=== PATIENT | female | born 1995 | race Caucasian/White ===

== ENCOUNTER 2018-03-01 09:05 | Outpatient (CLI) | payer OTHER | END 2018-03-01 12:47 | disposition home or self-care (01) | LOC: M LDO 09:05 | DX: O36.8130 Decreased fetal movements, third trimester, not applicable or unspecified (principal); Z3A.28 28 weeks gestation of pregnancy | CPT/HCPCS: 59025 ==

== ENCOUNTER → 2018-03-02 | Outpatient (REF) | payer OTHER ==
[2018-03-02 13:29] LABS: BASO % 0.3 % (0.0-1.0); EOS % 0.2 % (0.0-3.0); HEMATOCRIT 34.8 % (36.0-47.0); HEMOGLOBIN 11.2 g/dl (12.0-15.5); IMMATURE GRANULOCYTE % 0.7 % (0-3.0); LYMPH # 1.8 10^3/uL (1.5-6.5); LYMPH % 14.7 % (24.0-44.0); MEAN CORPUSCULAR HEMOGLOBIN 27.1 pg (27.0-33.0); MEAN CORPUSCULAR HGB CONC 32.2 g/dl (32.0-36.5); MEAN CORPUSCULAR VOLUME 84.3 fl (80.0-96.0); MONO % 7.9 % (0.0-5.0); NEUTROPHILS # 9.3 10^3/uL (1.8-7.7); NEUTROPHILS % 76.2 % (36.0-66.0); PLATELET COUNT, AUTOMATED 376 10^3/uL (150-450); RED BLOOD COUNT 4.13 10^6/uL (4.00-5.40); RED CELL DISTRIBUTION WIDTH 12.5 % (11.5-14.5); WHITE BLOOD COUNT 12.2 10^3/uL (4.0-10.0)
[2018-03-02 13:41] LABS: ALBUMIN 2.7 GM/DL (3.2-5.2); ALBUMIN/GLOBULIN RATIO 0.63 (1.00-1.93); ALKALINE PHOSPHATASE 245 U/L (45-117); ALT/SGPT 266 U/L (12-78); ANION GAP 7 MEQ/L (8-16); AST/SGOT 163 U/L (7-37); BILIRUBIN,TOTAL 0.3 MG/DL (0.2-1.0); BLOOD UREA NITROGEN 7 MG/DL (7-18); CALCIUM LEVEL 9.1 MG/DL (8.5-10.1); CARBON DIOXIDE LEVEL 27 MEQ/L (21-32); CHLORIDE LEVEL 106 MEQ/L (98-107); CREATININE FOR GFR 0.59 MG/DL (0.55-1.30); GLOMERULAR FILTRATION RATE > 60.0 (>60); GLUCOSE, FASTING 87 MG/DL (70-100); POTASSIUM SERUM 4.4 MEQ/L (3.5-5.1); SODIUM LEVEL 140 MEQ/L (136-145)
[2018-03-05 08:11] LABS: BILE ACIDS FRACTIONATED 7.1 umol/L (4.7-24.5)
== END ==
LOC: M LAB REF 12:56
DX: Z34.82 Encounter for supervision of other normal pregnancy, second trimester (principal)

== ENCOUNTER → 2018-03-18 | Outpatient (CLI) | payer OTHER | LOC: M RAD 06:56 | DX: O26.613 Liver and biliary tract disorders in pregnancy, third trimester (principal) | CPT/HCPCS: 76705 ==

== ENCOUNTER → 2018-03-31 | Outpatient (CLI) | payer OTHER ==
[2018-03-31 18:52] LABS: HEMATOCRIT 33.7 % (36.0-47.0); HEMOGLOBIN 10.3 g/dl (12.0-15.5); MEAN CORPUSCULAR HEMOGLOBIN 26.1 pg (27.0-33.0); MEAN CORPUSCULAR HGB CONC 30.6 g/dl (32.0-36.5); MEAN CORPUSCULAR VOLUME 85.3 fl (80.0-96.0); PLATELET COUNT, AUTOMATED 324 10^3/uL (150-450); RED BLOOD COUNT 3.95 10^6/uL (4.00-5.40); RED CELL DISTRIBUTION WIDTH 12.9 % (11.5-14.5); WHITE BLOOD COUNT 10.3 10^3/uL (4.0-10.0)
[2018-03-31 19:36] LABS: ALBUMIN 2.6 GM/DL (3.2-5.2); ALBUMIN/GLOBULIN RATIO 0.65 (1.00-1.93); ALKALINE PHOSPHATASE 301 U/L (45-117); ALT/SGPT 226 U/L (12-78); AST/SGOT 123 U/L (7-37); BILIRUBIN,DIRECT < 0.1 MG/DL (0.0-0.2); BILIRUBIN,TOTAL 0.2 MG/DL (0.2-1.0); TOTAL PROTEIN 6.6 GM/DL (6.4-8.2)
== END ==
LOC: M SMT 10:44
DX: O26.613 Liver and biliary tract disorders in pregnancy, third trimester (principal); Z3A.32 32 weeks gestation of pregnancy
CPT/HCPCS: 80076

== ENCOUNTER 2018-04-05 18:27 | Outpatient (CLI) | payer OTHER | END 2018-04-05 20:38 | disposition home or self-care (01) | LOC: M LDO 18:27 | DX: O26.853 Spotting complicating pregnancy, third trimester (principal); O47.03 False labor before 37 completed weeks of gestation, third trimester; Z3A.33 33 weeks gestation of pregnancy | CPT/HCPCS: 76815 ==

== ENCOUNTER → 2018-04-17 | Outpatient (REF) | payer OTHER | LOC: M LAB REF 17:19 | DX: Z34.83 Encounter for supervision of other normal pregnancy, third trimester (principal) ==

== ENCOUNTER 2018-05-01 11:33 | Inpatient (IN) | payer OTHER ==
[2018-05-01 12:17] LABS: HEMATOCRIT 35.1 % (36.0-47.0); HEMOGLOBIN 10.9 g/dl (12.0-15.5); MEAN CORPUSCULAR HEMOGLOBIN 24.8 pg (27.0-33.0); MEAN CORPUSCULAR HGB CONC 31.1 g/dl (32.0-36.5); PLATELET COUNT, AUTOMATED 374 10^3/uL (150-450); RED BLOOD COUNT 4.39 10^6/uL (4.00-5.40); RED CELL DISTRIBUTION WIDTH 13.2 % (11.5-14.5); WHITE BLOOD COUNT 11.1 10^3/uL (4.0-10.0)
[2018-05-01] MEDS: LACTATED RINGER'S 1000 ML IV (12:40)
[2018-05-01 13:02] LABS: ALBUMIN 2.6 GM/DL (3.2-5.2); ALBUMIN/GLOBULIN RATIO 0.59 (1.00-1.93); ALKALINE PHOSPHATASE 370 U/L (45-117); ALT/SGPT 327 U/L (12-78); AST/SGOT 219 U/L (7-37); BILIRUBIN,DIRECT 0.1 MG/DL (0.0-0.2); BILIRUBIN,TOTAL 0.3 MG/DL (0.2-1.0)
[2018-05-01] MEDS ORDERED: OXYTOCIN 30 UNITS IN 0.9% NaCl 500ML IV BAG (J2590) As Ordered (13:43)
[2018-05-01] MEDS: OXYTOCIN DRIP 30 UNITS in APPROPRIATE DILUENT 1 EA IV (14:08)
[2018-05-01] MEDS: PROMETHAZINE INJ 25 MG/ML VIAL (J2550) IV (14:15)
[2018-05-01] MEDS: BUTORPHANOL 2 MG/ML INJ (J0595) IV (14:15)
[2018-05-01] MEDS: LR 1,000 ML IV (17:58)
[2018-05-01] MEDS: URSODIOL 500 MG PO (19:10)
[2018-05-01] MEDS ORDERED: FENTANYL 2MCG/ML ROPIVACAINE 0.2% IN 0.9% NACL 200ML IVBAG As Ordered (19:29)
[2018-05-01] MEDS ORDERED: ONDANSETRON 4MG/2ML VIAL (J2405) IV (19:30)
[2018-05-01] MEDS ORDERED: ePHEDrine SULFATE 25 MG/5 ML(5MG/ML) SYRINGE IV (19:30)
[2018-05-01] MEDS ORDERED: EPIDURAL/PCA KEYS XX (19:30)
[2018-05-01] MEDS ORDERED: REFRIGERATOR IV KEYS XX (19:30)
[2018-05-01] MEDS ORDERED: LACTATED RINGER'S 1000 ML IV (19:30)
[2018-05-01] MEDS ORDERED: diphenhydrAMINE INJ 50MG/ML VIAL (J1200) IV (19:30)
[2018-05-01] MEDS: FENTANYL/ROPIVACAINE/NACL BAG 200 ML EPIDURAL (19:30)
[2018-05-01] MEDS ORDERED: EPIDURAL COMMENT XX (19:30)
[2018-05-01] MEDS ORDERED: NALOXONE INJ 0.4 MG/1 ML VIAL (J2310) IV (19:30)
[2018-05-01 21:43] LABS: CORD GAS HCO3 V 23.4 MEQ/L; CORD GAS O2 SAT V 71.2 %; CORD GAS PCO2 V 38.3 mmHg; CORD GAS PH V 7.404 UNITS; CORD GAS PO2 V 27.7 mmHg; CORD GAS TCO2 V 24.6 MEQ/L
[2018-05-01 21:45] LABS: CORD GAS ABE A -2.3; CORD GAS O2 SAT A 71.8 %; CORD GAS PCO2 A 46.2 mmHg; CORD GAS PH A 7.333 UNITS; CORD GAS PO2 A 27.6 mmHg; CORD GAS SBC A 21.9 MEQ/L; CORD GAS TCO2 A 25.4 MEQ/L
[2018-05-01] MEDS ORDERED: MOM 30ML SUSPENSION UDC PO (21:45)
[2018-05-01] MEDS ORDERED: METHYLERGONOVINE MALEATE 0.2 MG TAB PO (21:45)
[2018-05-01] MEDS ORDERED: DIBUCAINE 1% OINTMENT 30GM TOP (21:45)
[2018-05-01] MEDS ORDERED: RHOGAM 300 MCG (1500 IU) INJ (J2790) IM (21:45)
[2018-05-01] MEDS ORDERED: MEASLES,MUMPS,RUBELLA VACCINE INJ (MMR-II) (90707) SC (21:45)
[2018-05-01] MEDS ORDERED: ANUSOL HC CREAM 30GM TOP (21:45)
[2018-05-02] MEDS: ACETAMINOPHEN 500 MG TAB PO (05:53)
[2018-05-02] MEDS: PRENATAL VITAMINS CHEWABLE TABLET PO (07:46)
[2018-05-02] MEDS: IBUPROFEN 800 MG TAB PO ×2 (10:44→20:09)
[2018-05-02] MEDS: DOCUSATE SODIUM 100 MG CAP PO (20:08)
[2018-05-03] MEDS: PRENATAL VITAMINS CHEWABLE TABLET PO (07:51)
[2018-05-03] MEDS: IBUPROFEN 800 MG TAB PO (12:02)
[2018-05-04 14:55] LABS: BILE ACIDS FRACTIONATED 17.7 umol/L (4.7-24.5)
== END 2018-05-03 13:15 | disposition home or self-care (01) | DRG 775 ==
LOC: M LDI 11:33 → M OBS 23:34
PROC: 10E0XZZ Delivery of Products of Conception, External Approach (ICD-10-PCS; principal; 2018-05-01)
PROC: 3E033VJ Introduction of Other Hormone into Peripheral Vein, Percutaneous Approach (ICD-10-PCS; 2018-05-01)
PROC: 10907ZC Drainage of Amniotic Fluid, Therapeutic from Products of Conception, Via Natural or Artificial Opening (ICD-10-PCS; 2018-05-01)
DX: O26.62 Liver and biliary tract disorders in childbirth (principal); K83.1 Obstruction of bile duct; Z91.048 Other nonmedicinal substance allergy status; Z79.899 Other long term (current) drug therapy; Z37.0 Single live birth; Z3A.37 37 weeks gestation of pregnancy; O69.1XX0 Labor and delivery complicated by cord around neck, with compression, not applicable or unspecified

== ENCOUNTER 2018-11-01 00:32 | Emergency (ER) | payer OTHER ==
[~2018-11-01] VITALS: Ht 170.2 cm; Wt 108.6 kg
[~2018-11-01 00:32] MED LIST: ACET-683 PO; IBUP-1114 PO; PRENTAB7 PO; PRENTAB9 PO; TUMS500C PO; URSO300C3 PO
[2018-11-01] MEDS ORDERED: MULTCAP PO (00:38)
[2018-11-01] MEDS ORDERED: NS 1,000 ML IV ONE (01:00)
[2018-11-01] MEDS ORDERED: ONDANSETRON 4MG/2ML VIAL (J2405) IV ONE (01:00)
[2018-11-01] MEDS ORDERED: MORPHINE 4 MG/ML 1ML VIAL/SYRINGE (J2270) IV PRN (01:00)
[2018-11-01 01:18] LABS: BASO % 0.3 % (0.0-1.0); EOS % 0.4 % (0.0-3.0); HEMATOCRIT 43.3 % (36.0-47.0); HEMOGLOBIN 13.2 g/dl (12.0-15.5); LYMPH # 1.6 10^3/uL (1.5-6.5); LYMPH % 20.6 % (24.0-44.0); MEAN CORPUSCULAR HEMOGLOBIN 25.5 pg (27.0-33.0); MEAN CORPUSCULAR HGB CONC 30.5 g/dl (32.0-36.5); MEAN CORPUSCULAR VOLUME 83.8 fl (80.0-96.0); MONO # 0.8 10^3/uL (0.0-0.8); MONO % 9.8 % (0.0-5.0); NEUTROPHILS # 5.2 10^3/uL (1.8-7.7); NEUTROPHILS % 68.6 % (36.0-66.0); PLATELET COUNT, AUTOMATED 339 10^3/uL (150-450); RED BLOOD COUNT 5.17 10^6/uL (4.00-5.40); WHITE BLOOD COUNT 7.6 10^3/uL (4.0-10.0)
[2018-11-01 01:45] LABS: ALBUMIN 3.7 GM/DL (3.2-5.2); ALT/SGPT 28 U/L (12-78); BILIRUBIN,DIRECT < 0.1 MG/DL (0.0-0.2); BILIRUBIN,TOTAL 0.2 MG/DL (0.2-1.0); BLOOD UREA NITROGEN 17 MG/DL (7-18); CALCIUM LEVEL 9.4 MG/DL (8.5-10.1); CARBON DIOXIDE LEVEL 25 MEQ/L (21-32); CHLORIDE LEVEL 106 MEQ/L (98-107); CREATININE FOR GFR 0.72 MG/DL (0.55-1.30); GLOMERULAR FILTRATION RATE > 60.0 (>60); GLUCOSE, FASTING 85 MG/DL (70-100); LIPASE 97 U/L (73-393); POTASSIUM SERUM 4.1 MEQ/L (3.5-5.1); SODIUM LEVEL 138 MEQ/L (136-145); TOTAL PROTEIN 7.5 GM/DL (6.4-8.2)
--- NOTE | 2018-11-01 02:07 | REPVR ---
EXAM: US Abdomen Limited, Right Upper Quadrant EXAM DATE/TIME: 11/01/2018 1:39 AM CLINICAL HISTORY: 22 years old, female; Pain; Abdominal pain; Epigastric; Additional info: Epigastric abdominal TECHNIQUE: Real-time ultrasound of the abdomen with image documentation. Examination was focused on the right upper quadrant. COMPARISON: Abdomen, limited US 03/18/2018 7:14 AM FINDINGS: Liver: The liver is mildly echogenic and demonstrates no focal defects. Gallbladder: Shadowing gallstones are noted in the gallbladder. There is no wall thickening measuring 2-3 mm. There is a negative sono Da Silva's sign. Common bile duct: The CBD measures 3 mm. Pancreas: Limited visualization of the pancreas demonstrates no gross abnormality. Right kidney: The right kidney is normal measuring 11.2 cm. IMPRESSION: 1. Cholelithiasis with no gallbladder wall thickening. There is a negative sono Da Silva's sign. 2. Fatty infiltration of the liver. 3. Otherwise negative right upper quadrant sonogram. Electronically signed by: Delano David On 11/01/2018 02:07:12 AM
[2018-11-01 02:30] LABS: HCG, SERUM QUALITATIVE NEGATIVE (NEGATIVE)
[2018-11-01] MEDS ORDERED: ISOVUE-370 76% 100ML VIAL (Q9967) As Ordered ONE (02:46)
--- NOTE | 2018-11-01 03:15 | REPVR ---
EXAM: CT Abdomen and Pelvis With Contrast EXAM DATE/TIME: 11/01/2018 2:51 AM CLINICAL HISTORY: 22 years old, female; Pain; Abdominal pain; Epigastric; Additional info: Epigastric pain TECHNIQUE: Axial computed tomography images of the abdomen and pelvis with intravenous contrast. All CT scans at this facility use at least one of these dose optimization techniques: automated exposure control; mA and/or kV adjustment per patient size (includes targeted exams where dose is matched to clinical indication); or iterative reconstruction. Coronal and sagittal reformatted images were created and reviewed. CONTRAST: 100 ml of ISOVUE 370 administered intravenously. COMPARISON: CT ABD PELVIS W/O CONTRAST 06/30/2012 9:39 AM FINDINGS: Lower thorax: No acute findings. ABDOMEN: Liver: Normal. No mass. Gallbladder and bile ducts: Probable sludge in the gallbladder. Pancreas: Normal. No ductal dilation. Spleen: Normal. No splenomegaly. Adrenals: Normal. No mass. Kidneys and ureters: Normal. No hydronephrosis. Stomach and bowel: Normal. No obstruction. No mucosal thickening. Appendix: A normal appendix is seen. PELVIS: Bladder: Unremarkable as visualized. Reproductive: Unremarkable as visualized. ABDOMEN and PELVIS: Intraperitoneal space: Normal. No free air. No significant fluid collection. Bones/joints: No acute fracture. No dislocation. Soft tissues: Unremarkable. Vasculature: Normal. No abdominal aortic aneurysm. Lymph nodes: Normal. No enlarged lymph nodes. IMPRESSION: 1. There has been little change from 06/30/2012. No acute interval process is identified. 2. Probable sludge in the gallbladder. Electronically signed by: Delano David On 11/01/2018 03:14:47 AM
[2018-11-01] MEDS ORDERED: HYOS1TAB PO (03:35)
[2018-11-01 03:39] VITALS: BP 118/80
== END 2018-11-01 03:40 | disposition home or self-care (01) ==
LOC: M ED 00:32
DX: K80.70 Calculus of gallbladder and bile duct without cholecystitis without obstruction (principal); R11.0 Nausea; Z91.040 Latex allergy status; J30.1 Allergic rhinitis due to pollen
CPT/HCPCS: 74177; 76705; 80048; 80076; 81001; 83690; 84703; 85025; 96374; 96375; 99284; J2270; J2405; Q9967

== ENCOUNTER → 2019-01-01 | Outpatient (CLI) | payer OTHER ==
[~2019-01-01] VITALS: Ht 170.2 cm; Wt 3.2 kg
[~2019-01-01] MED LIST changes: +BUPIVACAINE HCL 0.25% 30 ML VIAL As Ordered ONE; +HYOS1TAB PO; +LR 1,000 ML IV ONE; +MULTCAP PO
[2019-01-01 06:59] VITALS: BP 135/88
[2019-01-01 07:18] LABS: URINE PREG TEST POSITIVE (NEGATIVE)
== END ==
LOC: M SDC 06:00 → EDSTATUS 07:35
PROVIDERS: ATTEND Surgery
DX: Z01.818 Encounter for other preprocedural examination (principal)

== ENCOUNTER → 2019-01-03 | Outpatient (CLI) | payer OTHER ==
[~2019-01-03] MED LIST changes: -BUPIVACAINE HCL 0.25% 30 ML VIAL As Ordered ONE; -LR 1,000 ML IV ONE
== END ==
LOC: M LAB 11:03
PROVIDERS: ATTEND Advanced Practice Midwife
DX: N91.2 Amenorrhea, unspecified (principal)

== ENCOUNTER → 2019-02-25 | Outpatient (CLI) | payer OTHER | LOC: M SMT 13:17 | PROVIDERS: ATTEND Advanced Practice Midwife | DX: Z34.81 Encounter for supervision of other normal pregnancy, first trimester (principal); Z3A.00 Weeks of gestation of pregnancy not specified; K80.10 Calculus of gallbladder with chronic cholecystitis without obstruction ==

== ENCOUNTER → 2019-03-06 | Outpatient (REF) | payer OTHER | LOC: M SFHCADAM 11:40 | PROVIDERS: ATTEND Physician Assistant | DX: K80.20 Calculus of gallbladder without cholecystitis without obstruction (principal); K52.9 Noninfective gastroenteritis and colitis, unspecified ==

== ENCOUNTER → 2019-03-06 | Outpatient (CLI) | payer OTHER | LOC: M ADAMS 11:46 | PROVIDERS: ATTEND Physician Assistant | DX: K80.20 Calculus of gallbladder without cholecystitis without obstruction (principal); K52.9 Noninfective gastroenteritis and colitis, unspecified ==

== ENCOUNTER → 2019-03-17 | Outpatient (REF) | payer OTHER ==
[2019-03-18 10:27] LABS: ALBUMIN 3.4 GM/DL (3.2-5.2); ALT/SGPT 27 U/L (12-78); BILIRUBIN,TOTAL 0.1 MG/DL (0.2-1.0); BLOOD UREA NITROGEN 12 MG/DL (7-18); CALCIUM LEVEL 10.3 MG/DL (8.5-10.1); CARBON DIOXIDE LEVEL 25 MEQ/L (21-32); CHLORIDE LEVEL 103 MEQ/L (98-107); CREATININE FOR GFR 0.63 MG/DL (0.55-1.30); GLOMERULAR FILTRATION RATE > 60.0 (>60); GLUCOSE, FASTING 70 MG/DL (70-100); POTASSIUM SERUM 4.2 MEQ/L (3.5-5.1); SODIUM LEVEL 136 MEQ/L (136-145); TOTAL PROTEIN 7.2 GM/DL (6.4-8.2)
== END ==
LOC: M LAB REF 09:00
PROVIDERS: ATTEND Advanced Practice Midwife
DX: Z34.82 Encounter for supervision of other normal pregnancy, second trimester (principal)

== ENCOUNTER → 2019-04-03 | Outpatient (REF) | payer OTHER | LOC: M LAB REF 08:35 | PROVIDERS: ATTEND Advanced Practice Midwife | DX: O99.712 Diseases of the skin and subcutaneous tissue complicating pregnancy, second trimester (principal) ==

== ENCOUNTER → 2019-04-13 | Outpatient (CLI) | payer BC, OTHER ==
--- NOTE | 2019-04-13 10:31 | REP ---
OBSTETRIC SONOGRAPHY: HISTORY: Supervision of for anatomy. FINDINGS: Scanning through the gravid uterus demonstrates a viable single intrauterine gestation in a transverse lie, head to the maternal left. motion is observed and heart rate is recorded at 160 beats per minute. An anterior placenta is seen grade 0 without evidence of previa. Amniotic fluid is subjectively normal. Closed cervical length is measured at 6.0 cm viewed transabdominally. No extrauterine abnormality is observed. Exam quality is inhibited to some degree by maternal body habitus. No anomaly is seen. face and profile visualization is less than optimally seen due to position. The following additional anatomic structures are identified and felt to be sonographically unremarkable: cranium, choroid plexus, cavum, cerebellum and posterior fossa, lungs, four-chamber heart with left and right ventricular outflow tract views, diaphragm, left-sided stomach, abdominal wall cord insertion, three-vessel umbilical cord, kidneys and bladder, spine, upper and lower extremities. BIOMETRY CHART: BPD 4.2 cm = 18 weeks 5 days HC 15.3 cm = 18 weeks 2 days AC 13.4 cm = 18 weeks 6 days FL 2.9 cm = 18 weeks 6 days HL 2.8 cm = 19 weeks 1 day HC/AC ratio normal 1.14. Cephalic index normal 0.77. Estimated weight 259 grams, 0 pounds 9 ounces, 63rd percentile for 18 weeks 3 days. IMPRESSION: Viable single intrauterine gestation at 18 weeks 4 days by today's composite sonographic criteria. RAQUEL by today's sonography September 10, 2019. face and profile views less than optimally achieved due to position. anatomic survey is felt to be otherwise complete. Electronically Signed by Brian Kwan MD 04/13/2019 09:02 P
== END ==
LOC: M RAD 08:35
PROVIDERS: ATTEND Advanced Practice Midwife
DX: Z34.82 Encounter for supervision of other normal pregnancy, second trimester (principal)

== ENCOUNTER → 2019-04-22 | Outpatient (CLI) | payer OTHER ==
[~2019-04-22] MED LIST changes: +HYDR50CA2 OR; +LORA-674 OR
[2019-04-23 13:27] LABS: ALT/SGPT 45 U/L (12-78); BILIRUBIN,TOTAL 0.1 MG/DL (0.2-1.0); BLOOD UREA NITROGEN 7 MG/DL (7-18); CALCIUM LEVEL 9.4 MG/DL (8.5-10.1); CARBON DIOXIDE LEVEL 26 MEQ/L (21-32); CHLORIDE LEVEL 105 MEQ/L (98-107); CREATININE FOR GFR 0.57 MG/DL (0.55-1.30); GLOMERULAR FILTRATION RATE > 60.0 (>60); GLUCOSE, FASTING 84 MG/DL (70-100); POTASSIUM SERUM 4.3 MEQ/L (3.5-5.1); SODIUM LEVEL 138 MEQ/L (136-145); TOTAL PROTEIN 6.9 GM/DL (6.4-8.2)
== END ==
LOC: M LABDRWAD 17:50
PROVIDERS: ATTEND Advanced Practice Midwife
DX: O99.712 Diseases of the skin and subcutaneous tissue complicating pregnancy, second trimester (principal); Z3A.00 Weeks of gestation of pregnancy not specified

== ENCOUNTER 2019-04-24 17:39 | Emergency (ER) | payer OTHER, MEDICAID ==
[~2019-04-24] VITALS: Ht 170.2 cm; Wt 109.4 kg
[~2019-04-24 17:39] MED LIST changes: -HYDR50CA2 OR; -LORA-674 OR
[2019-04-24] MEDS ORDERED: LORA-674 OR (17:54)
[2019-04-24] MEDS ORDERED: HYDR50CA2 OR (17:54)
[2019-04-24 18:33] LABS: BASO % 0.2 % (0.0-1.0); EOS % 0.3 % (0.0-3.0); HEMATOCRIT 36.6 % (36.0-47.0); LYMPH # 1.8 10^3/uL (1.5-6.5); LYMPH % 15.7 % (24.0-44.0); MEAN CORPUSCULAR HEMOGLOBIN 28.3 pg (27.0-33.0); MEAN CORPUSCULAR HGB CONC 32.8 g/dl (32.0-36.5); MEAN CORPUSCULAR VOLUME 86.3 fl (80.0-96.0); MONO # 0.8 10^3/uL (0.0-0.8); MONO % 7.1 % (0.0-5.0); NEUTROPHILS # 8.7 10^3/uL (1.8-7.7); NEUTROPHILS % 76.3 % (36.0-66.0); PLATELET COUNT, AUTOMATED 279 10^3/uL (150-450); RED BLOOD COUNT 4.24 10^6/uL (4.00-5.40); WHITE BLOOD COUNT 11.4 10^3/uL (4.0-10.0)
[2019-04-24] MEDS ORDERED: MORPHINE 4 MG/ML 1ML VIAL/SYRINGE (J2270) IV ONE (18:45)
[2019-04-24] MEDS ORDERED: NS 1,000 ML IV ONE (18:45)
[2019-04-24] MEDS ORDERED: METOCLOPRAMIDE INJ 10MG/2ML VIAL (J2765) IV ONE (18:45)
[2019-04-24 18:53] LABS: ALT/SGPT 42 U/L (12-78); AMYLASE 59 U/L (25-115); BILIRUBIN,DIRECT < 0.1 MG/DL (0.0-0.2); BILIRUBIN,TOTAL < 0.1 MG/DL (0.2-1.0); BLOOD UREA NITROGEN 8 MG/DL (7-18); CARBON DIOXIDE LEVEL 26 MEQ/L (21-32); CHLORIDE LEVEL 107 MEQ/L (98-107); CREATININE FOR GFR 0.65 MG/DL (0.55-1.30); GLOMERULAR FILTRATION RATE > 60.0 (>60); GLUCOSE, FASTING 100 MG/DL (70-100); LIPASE 113 U/L (73-393); POTASSIUM SERUM 4.3 MEQ/L (3.5-5.1); SODIUM LEVEL 139 MEQ/L (136-145); TOTAL PROTEIN 6.9 GM/DL (6.4-8.2)
--- NOTE | 2019-04-24 20:08 | REPVR ---
EXAM: US Abdomen Limited, Right Upper Quadrant EXAM DATE/TIME: 04/24/2019 6:49 PM CLINICAL HISTORY: 23 years old, female; Abdominal pain; Epigastric; ; Additional info: Ruq pain, HX of ani TECHNIQUE: Imaging protocol: Real-time ultrasound of the abdomen with image documentation. Examination was focused on the right upper quadrant. COMPARISON: GALLBLADDER US 11/01/2018 1:30 AM FINDINGS: Liver: There is a generalized increase in echotexture of the liver. The echotexture pattern is mildly heterogeneous. Gallbladder: Structure believed to represent the gallbladder is collapsed and demonstrates a wall echo shadow triad consistent with gallstones. Common bile duct: The common bile but measures 3 mm. Pancreas: Visualized pancreas is unremarkable. Right kidney: The right kidney measures 11.7 x 4.6 x 5.5 cm. No hydronephrosis in the right kidney. Intraperitoneal space: No ascites in the upper abdomen. IMPRESSION: 1. Contracted stone filled gallbladder. No ductal dilatation. 2. No hydronephrosis. 3. Echogenic heterogeneous-appearing liver. This indicates an underlying infiltrative process such as fatty infiltration. Clinical correlation needed. Electronically signed by: Jessie Dietrich On 04/24/2019 20:08:20 PM
[2019-04-24 20:42] VITALS: BP 108/71
[2019-04-24] MEDS ORDERED: NEOSPORIN OINT 0.9 GM PKT (FLOOR STOCK) TOP ONE (21:00)
== END 2019-04-24 20:50 | disposition home or self-care (01) ==
LOC: M ED 17:39
DX: O99.612 Diseases of the digestive system complicating pregnancy, second trimester (principal); K80.70 Calculus of gallbladder and bile duct without cholecystitis without obstruction; Z3A.20 20 weeks gestation of pregnancy; Z79.899 Other long term (current) drug therapy
CPT/HCPCS: 36415; 76705; 80048; 80076; 81001; 82150; 83690; 85025; 96361; 96374; 96375; 99284; J2270; J2765

== ENCOUNTER → 2019-04-27 | Outpatient (CLI) | payer OTHER ==
[~2019-04-27] MED LIST changes: +HYDR50CA2 OR; +LORA-674 OR
--- NOTE | 2019-04-27 15:15 | REP ---
Clinical: Anatomical evaluation. Comparison: 04/13/2019 . Findings: Examination demonstrates a single live intrauterine in cephalic presentation. motion is identified by technologist. Placenta is noted anterior and grade one without evidence for placenta previa or abruption. Amniotic fluid volume is normal. Cervix measures 4.5 cm in length and appears closed. No evidence for nuchal cord. Gestational age by LMP 20 weeks 3 days with RAQUEL 09/11/2019 . Gestational age by current measurements 20 weeks 2 days with RAQUEL 09/12/2019 . FHR equals 163 beats per minute. Estimated weight 352 grams ( 47th percentile). Anatomical assessment demonstrates normal structures including cranium, cavum, cerebellum/posterior fossa, facial features, lungs, four-chamber heart/right ventricular outflow tract, diaphragm, stomach, cord insertion/three-vessel cord, kidneys/bladder, spine, and extremities. Impression: Single live intrauterine in cephalic presentation demonstrating appropriate interval growth. In conjunction with prior examination anatomical assessment is complete and normal. No gross abnormalities are identified. Electronically Signed by Vu Overton MD 04/27/2019 03:07 P
== END ==
LOC: M RAD 13:30
PROVIDERS: ATTEND Advanced Practice Midwife
DX: O99.712 Diseases of the skin and subcutaneous tissue complicating pregnancy, second trimester (principal)

== ENCOUNTER → 2019-05-22 | Outpatient (CLI) | payer OTHER ==
[2019-05-22 13:49] LABS: ALBUMIN 2.8 GM/DL (3.2-5.2); ALT/SGPT 96 U/L (12-78); BILIRUBIN,DIRECT < 0.1 MG/DL (0.0-0.2); BILIRUBIN,TOTAL 0.2 MG/DL (0.2-1.0)
== END ==
LOC: M LAB 12:43
PROVIDERS: ATTEND Obstetrics & Gynecology
DX: O26.613 Liver and biliary tract disorders in pregnancy, third trimester (principal); Z3A.00 Weeks of gestation of pregnancy not specified

== ENCOUNTER 2019-05-24 18:03 | Outpatient (CLI) | payer OTHER ==
[~2019-05-24] VITALS: Ht 172.7 cm; Wt 108.8 kg
[2019-05-24 18:19] VITALS: BP 123/71
[2019-05-24] MEDS ORDERED: URSO300C3 PO (18:38)
--- NOTE | 2019-05-24 19:10 | IPNPDOC ---
Text Note Date of Service The patient was seen on 05/24/19. NOTE Subjective: Patient is a 23-year-old female who is a at 24.3 weeks gestation with an RAQUEL of 09/11/19. Her has been complicated by cholestasis, which she was diagnosed with on 05/19/19 based off of elevated liver enzymes. She has had cholestasis with both of her previous pregnancies. She was started on ursodiol. She presents to L&D with complaints of abdominal cramping that started tonight. She also reported having diarrhea one after the cramping started. She took acetaminophen, which she reports took a long time to work. States cramping has improved. Cramping is only supra pubic. She denies any contractions. Reports movement. Denies vaginal bleeding. Objective: VS and lab see below. FHR is 155, moderate variability, positive accelerations, no decelerations. Contractions: none. Fetus is very active on the external monitor and patient is difficult to monitor due to abdominal girth. Was able to keep fetus on the monitor for 10 minutes at a time. Abdomen is nontender to palpation and soft to palpation. Assessment: IUP at 24.3 weeks gestation, cramping, cholestasis Plan: Patient discharged to home. Reviewed comfort measures with patient. Reviewed access to care, movement, labor signs, and danger signs to report. She is to follow-up with her routine OB appointments. VS,Fishbone, I+O VS, Fishbone, I+O Vital Signs Date Time Temp Pulse Resp B/P (MAP) Pulse Ox O2 Delivery O2 Flow Rate FiO2 05/24/19 18:19 98.6 102 18 123/71 (88) Item Value Date Time Urine Color YELLOW 05/24/191847 Urine Appearance CLEAR 05/24/191847 Urine pH 6.0 UNITS 05/24/191847 Urine Specific [place] 1.023 05/24/191847 Urine Protein NEGATIVE mg/dL 05/24/191847 Urine Glucose (UA) NEGATIVE mg/dL 05/24/191847 Urine Ketones NEGATIVE mg/dL 05/24/191847 Urine Blood NEGATIVE 05/24/191847 Urine Nitrite NEGATIVE 05/24/191847 Urine Bilirubin NEGATIVE 05/24/191847 Urine Urobilinogen 0.2 mg/dL 05/24/191847 Urine Leukocyte Esterase NEGATIVE 05/24/191847 Urine WBC (Auto) 0 /HPF 05/24/191847 Urine RBC (Auto) 0 /HPF 05/24/191847 Urine Hyaline Casts (Auto) 0 /LPF 05/24/191847 Urine Bacteria (Auto) NEGATIVE 05/24/191847 Urine Squamous Epithelial Cells 0 /HPF 05/24/191847 Urine Mucus (Auto) SMALL 05/24/191847 ROSAURA DE SOUZA May 24, 2019 19:10
[2019-05-24 19:16] LABS: APPEARANCE, URINE CLEAR (CLEAR); BACTERIA, URINE AUTO NEGATIVE (NEGATIVE); BILIRUBIN, URINE AUTO NEGATIVE (NEGATIVE); BLOOD, URINE BLOOD NEGATIVE (NEGATIVE); COLOR, URINE YELLOW (YELLOW); GLUCOSE, URINE (UA) AUTO NEGATIVE (NEGATIVE); KETONE, URINE AUTO NEGATIVE (NEGATIVE); LEUKOCYTE ESTERASE, URINE AUTO NEGATIVE (NEGATIVE); MUCUS, URINE SMALL (NEGATIVE); NITRITE, URINE AUTO NEGATIVE (NEGATIVE); PROTEIN, URINE AUTO NEGATIVE (NEGATIVE); RBC, URINE AUTO 0 /HPF (0-3); SPECIFIC GRAVITY URINE AUTO 1.023 (1.002-1.035); SQUAMOUS EPITHELIAL CELL UR AU 0 /HPF (0-6); UROBILINOGEN, URINE AUTO 0.2 mg/dL (0.0-2.0); WBC, URINE AUTO 0 /HPF (0-3)
[2019-05-24 19:26] VITALS: BP 112/65
== END 2019-05-24 19:30 | disposition home or self-care (01) ==
LOC: M LDO 18:03
PROVIDERS: ATTEND Advanced Practice Midwife
DX: O26.892 Other specified pregnancy related conditions, second trimester (principal); R10.9 Unspecified abdominal pain; O26.612 Liver and biliary tract disorders in pregnancy, second trimester; Z3A.24 24 weeks gestation of pregnancy
CPT/HCPCS: 59025; 81001; 87086; G0378; G0463

== ENCOUNTER → 2019-06-14 | Outpatient (REF) | payer OTHER ==
[2019-06-14 13:47] LABS: BASO % 0.2 % (0.0-1.0); EOS % 0.5 % (0.0-3.0); HEMATOCRIT 35.7 % (36.0-47.0); HEMOGLOBIN 11.1 g/dl (12.0-15.5); LYMPH # 1.4 10^3/uL (1.5-6.5); LYMPH % 16.5 % (24.0-44.0); MEAN CORPUSCULAR HEMOGLOBIN 26.7 pg (27.0-33.0); MEAN CORPUSCULAR HGB CONC 31.1 g/dl (32.0-36.5); MEAN CORPUSCULAR VOLUME 85.8 fl (80.0-96.0); MONO # 0.8 10^3/uL (0.0-0.8); MONO % 9.4 % (0.0-5.0); NEUTROPHILS # 6.3 10^3/uL (1.8-7.7); NEUTROPHILS % 72.8 % (36.0-66.0); PLATELET COUNT, AUTOMATED 295 10^3/uL (150-450); RED BLOOD COUNT 4.16 10^6/uL (4.00-5.40); WHITE BLOOD COUNT 8.6 10^3/uL (4.0-10.0)
[2019-06-14 13:51] LABS: ALBUMIN 2.7 GM/DL (3.2-5.2); ALT/SGPT 290 U/L (12-78); BILIRUBIN,DIRECT < 0.1 MG/DL (0.0-0.2); BILIRUBIN,TOTAL 0.2 MG/DL (0.2-1.0); GLUCOSE CHALLENGE TEST 1 HOUR 91 MG/DL (LESS THAN 140); TOTAL PROTEIN 6.5 GM/DL (6.4-8.2)
== END ==
LOC: M LABDRWAD 12:09
PROVIDERS: ATTEND Advanced Practice Midwife
DX: Z34.82 Encounter for supervision of other normal pregnancy, second trimester (principal)

== ENCOUNTER 2019-07-08 16:45 | Outpatient (CLI) | payer OTHER ==
[~2019-07-08] VITALS: Ht 172.7 cm; Wt 108.0 kg
[2019-07-08 17:13] VITALS: BP 115/70
--- NOTE | 2019-07-08 18:38 | IPNPDOC ---
Text Note Date of Service The patient was seen on 07/08/19. NOTE Chief complaint: Cramping and spotting HPI: Kaelyn is a 23-year-old 002 at 30 weeks 5 days gestational age by last menstrual period of 11/29/2018, with an estimated due date of 09/11/2019 confirmed by first trimester ultrasound. She is presenting to labor and delivery complaining of cramping since Friday. She had some spotting at that time which has decreased to only being seen with wiping. She states today her cramping became worse around 3:45 PM. She noticed regular cramping, and came in to be evaluated. She denies painful contractions or leakage of fluid. She is feeling baby move. She states her last intercourse was at least one month ago as her 2 year-old child has been sleeping in her bed since January. Obstetrical history: 1. In 2016, she delivered a 5 lbs. 12 oz. male infant at 37 weeks 1 day estimated gestational age, induced secondary to cholestasis of (she said that she went into labor at 34 weeks and was given magnesium) 2. In 2018 she delivered a 6 lbs. 1 oz. female infant at 37 weeks estimated gestational age, induced secondary to cholestasis of . Obstetrical labs: Blood type A positive, HIV negative, rubella immune, VDRL nonreactive, hepatitis B surface antigen negative, hepatitis C nonreactive, gonorrhea negative, Chlamydia negative, diabetes screen 91. Obstetrical ultrasound has shown single IUP with an anterior placenta. Physical exam: Vitals: Temperature 97.7 heart rate 127 blood pressure 115/70 Abdomen: Gravid, no palpable contractions Speculum exam: No bleeding observed from cervical os or in vaginal vault. negative Valsalva, negative pooling, negative nitrazine, negative ferning Sterile vaginal exam: Fingertip/thick/high Heart Rate: Baseline 145 bpm, moderate variability, positive accels no decels. [place]: No contractions Assessment/plan: 1. IUP at 30 weeks 5 days estimated gestational age, not in active labor 2. Will obtain urinalysis and culture, cramping could be secondary to dehydration or infection. Have encouraged her to drink plenty of fluid, and will likely discharge home, +/- antibiotic pending urinalysis. VS,Fishbone, I+O VS, Fishbone, I+O Vital Signs Date Time Temp Pulse Resp B/P (MAP) Pulse Ox O2 Delivery O2 Flow Rate FiO2 07/08/19 17:13 97.7 127 18 115/70 (85) GME ATTESTATION GME ATTESTATION My faculty preceptor for this patient encounter was physically present during the encounter and was fully available. All aspects of the patient interview, examination, medical decision making process, and medical care plan development were reviewed and approved by the faculty preceptor. The faculty preceptor is aware and concurs with the plan as stated in the body of this note and will attest to such by his/her cosignature. KAELYN HARDWICK DO Jul 08, 2019 18:38 EITAN HUBER CNM Jul 08, 2019 20:21
[2019-07-08 18:46] LABS: APPEARANCE, URINE HAZY (CLEAR); BACTERIA, URINE AUTO NEGATIVE (NEGATIVE); BILIRUBIN, URINE AUTO NEGATIVE (NEGATIVE); BLOOD, URINE BLOOD NEGATIVE (NEGATIVE); COLOR, URINE AMBER (YELLOW); GLUCOSE, URINE (UA) AUTO NEGATIVE (NEGATIVE); KETONE, URINE AUTO 1+ mg/dL (NEGATIVE); LEUKOCYTE ESTERASE, URINE AUTO NEGATIVE (NEGATIVE); MUCUS, URINE LARGE (NEGATIVE); NITRITE, URINE AUTO NEGATIVE (NEGATIVE); PROTEIN, URINE AUTO 1+ mg/dL (NEGATIVE); RBC, URINE AUTO 1 /HPF (0-3); SPECIFIC GRAVITY URINE AUTO 1.028 (1.002-1.035); SQUAMOUS EPITHELIAL CELL UR AU 0 /HPF (0-6); UROBILINOGEN, URINE AUTO 0.2 mg/dL (0.0-2.0); WBC, URINE AUTO 1 /HPF (0-3)
[2019-07-08 19:57] VITALS: BP 110/72
== END 2019-07-08 20:12 | disposition home or self-care (01) ==
LOC: M LDO 16:45
PROVIDERS: ATTEND Advanced Practice Midwife
DX: O26.853 Spotting complicating pregnancy, third trimester (principal); O26.893 Other specified pregnancy related conditions, third trimester; R10.9 Unspecified abdominal pain; Z3A.30 30 weeks gestation of pregnancy
CPT/HCPCS: 59025; 81001; 87086; G0378; G0463

== ENCOUNTER → 2019-07-10 | Outpatient (CLI) | payer OTHER ==
[2019-07-10 17:24] LABS: ALBUMIN 2.6 GM/DL (3.2-5.2); ALT/SGPT 479 U/L (12-78); BILIRUBIN,TOTAL 0.2 MG/DL (0.2-1.0); BLOOD UREA NITROGEN 7 MG/DL (7-18); CALCIUM LEVEL 9.8 MG/DL (8.5-10.1); CARBON DIOXIDE LEVEL 23 MEQ/L (21-32); CHLORIDE LEVEL 107 MEQ/L (98-107); CREATININE FOR GFR 0.64 MG/DL (0.55-1.30); GLOMERULAR FILTRATION RATE > 60.0 (>60); GLUCOSE, FASTING 91 MG/DL (70-100); POTASSIUM SERUM 4.4 MEQ/L (3.5-5.1); SODIUM LEVEL 140 MEQ/L (136-145); TOTAL PROTEIN 6.5 GM/DL (6.4-8.2)
== END ==
LOC: M ADAMS 10:04
PROVIDERS: ATTEND Advanced Practice Midwife
DX: O26.612 Liver and biliary tract disorders in pregnancy, second trimester (principal)

== ENCOUNTER → 2019-07-14 | Outpatient (CLI) | payer OTHER, MEDICAID ==
--- NOTE | 2019-07-14 09:37 | REP ---
OB ULTRASOUND AND BIOPHYSICAL PROFILE: Real-time sonographic evaluation of the pelvis performed utilizing transabdominal technique. There is a single living intrauterine gestation with an estimated gestational age 31 weeks 4 days, EDC 09/11/2019. Cervix is closed and measures 2.2 cm in length. heart rate 153 beats per minute. Amniotic fluid within normal limits, ASTER 14.7 within normal range of 8.7 to 24.0. Biophysical score is 8/8. S/D ratio 2.20 is below the normal range of 2.5-3.5. RI 0.55 is below the normal range of 0.59 to 0.75. Placenta is anterior and grade 1-2 with no previa or abruption. position is vertex. Electronically Signed by Silas Quinones MD 07/15/2019 08:05 A
--- NOTE | 2019-07-14 10:38 | REP ---
RIGHT UPPER QUADRANT ULTRASOUND: Real-time sonographic evaluation of the right upper quadrant is performed. Multiple gallstones are seen in the gallbladder. There is no gallbladder wall thickening or pericholecystic fluid. There is no intrahepatic or extrahepatic biliary dilatation, common bile duct measuring 4 mm. There is somewhat increased echotexture of the liver suggesting mild fatty infiltration. No liver or pancreatic mass is seen. The pancreas is not optimally seen due to overlying bowel gas. Right kidney demonstrates no hydronephrosis with normal size 11.2 cm in length. IMPRESSION: Multiple gallstones in the gallbladder. No biliary dilatation or free fluid. No gallbladder wall thickening. Possible mild fatty infiltration of the liver. Electronically Signed by Silas Quinones MD 07/15/2019 08:07 A
== END ==
LOC: M RAD 07:39
PROVIDERS: ATTEND Obstetrics & Gynecology
DX: R94.5 Abnormal results of liver function studies (principal)

== ENCOUNTER → 2019-07-19 | Outpatient (CLI) | payer OTHER, MEDICAID ==
[~2019-07-19] MED LIST changes: +GAS X; +IBUP-1022 PO; +OXYC1TAB23 PO; +PREN29TA4 PO; +TUMS750C5 PO
[2019-07-19 15:22] LABS: HEPATITIS A ANTIBODY IGM NEGATIVE (NEGATIVE); HEPATITIS B CORE ANTIBODY IGM NEGATIVE (NEGATIVE); HEPATITIS B SURFACE ANTIGEN NEGATIVE (NEGATIVE)
--- NOTE | 2019-07-19 17:05 | REP ---
OB ULTRASOUND, BIOPHYSICAL PROFILE: Real-time sonographic evaluation of the gravid uterus is performed. There is a single living intrauterine gestation. The estimated gestational age reportedly 32 weeks 2 days. EDC 09/11/2019. The cervix is closed and measures 3.3 cm in length. heart rate 160 beats per minute. Amniotic fluid within normal limits, ASTER 13.8 within normal range of 8.5 to 24.3. Biophysical profile score is 8/8. SD ratio 3.18 within normal range of 2.35 to 3.35. RI 0.69 within normal range of 0.59 to 0.75. position is breech. Placenta is anterior and grade 1 to 2 with no previa or abruption. Electronically Signed by Silas Quinones MD 07/21/2019 09:33 A
== END ==
LOC: M RAD 12:58
PROVIDERS: ATTEND Obstetrics & Gynecology
DX: R94.5 Abnormal results of liver function studies (principal)

== ENCOUNTER → 2019-07-27 | Outpatient (CLI) | payer OTHER, MEDICAID ==
[~2019-07-27] MED LIST changes: -GAS X; -IBUP-1022 PO; -OXYC1TAB23 PO; -PREN29TA4 PO; -TUMS750C5 PO
--- NOTE | 2019-07-28 06:32 | REP ---
Clinical: Anatomical evaluation. Comparison: Growth 07/19/2019 . Findings: Examination demonstrates a single live intrauterine in cephalic presentation. motion is identified by technologist. Placenta is noted anterior and grade I without evidence for placenta previa or abruption. Amniotic fluid volume is normal. Cervix measures 5.0 cm in length and appears closed. No evidence for nuchal cord. Gestational age by LMP 33 weeks 3 days with RAQUEL 09/11/2019 . Gestational age by current measurements 33 weeks 6 days with RAQUEL 09/08/2019 . FHR equals 168 beats per minute. BPD 8.5 cm 34 weeks 1 day HC 30.4 cm 33 weeks 6 days AC 29.9 cm 33 weeks 6 days FL 6.7 cm 34 weeks 2 days HL 5.7 cm 33 weeks 2 days HC/AC ratio 1.02 Estimated weight 2332 grams ( 57th percentile). Amniotic fluid index: 13.1 cm (8.2 - 24.6) Umbilical cord SD ratio: 2.29 (2.00 - 3.00) Biophysical profile score: 8/8 Impression: Single live advanced gestation in cephalic presentation demonstrating appropriate interval growth. No gross abnormalities are identified. Electronically Signed by Vu Overton MD 07/28/2019 06:25 A
== END ==
LOC: M RAD 14:29
PROVIDERS: ATTEND Advanced Practice Midwife
DX: O26.613 Liver and biliary tract disorders in pregnancy, third trimester (principal); Z3A.33 33 weeks gestation of pregnancy

== ENCOUNTER 2019-08-01 08:42 | Outpatient (CLI) | payer OTHER, MEDICAID ==
[~2019-08-01] VITALS: Ht 170.2 cm; Wt 110.0 kg
[2019-08-01 08:55] VITALS: BP 110/73
[2019-08-01 10:26] VITALS: BP 111/55
== END 2019-08-01 10:35 | disposition home or self-care (01) ==
LOC: M LDO 08:42
PROVIDERS: ATTEND Obstetrics & Gynecology
DX: O36.8130 Decreased fetal movements, third trimester, not applicable or unspecified (principal); O99.613 Diseases of the digestive system complicating pregnancy, third trimester; K80.80 Other cholelithiasis without obstruction; Z3A.34 34 weeks gestation of pregnancy
CPT/HCPCS: 59025; 76815; G0378; G0463

== ENCOUNTER → 2019-08-03 | Outpatient (CLI) | payer OTHER, MEDICAID ==
[~2019-08-03] MED LIST changes: +TUMS750C5 PO
[2019-08-03 21:02] LABS: ALBUMIN 2.4 GM/DL (3.2-5.2); ALT/SGPT 335 U/L (12-78); BILIRUBIN,TOTAL 0.2 MG/DL (0.2-1.0); BLOOD UREA NITROGEN 11 MG/DL (7-18); CALCIUM LEVEL 9.8 MG/DL (8.5-10.1); CARBON DIOXIDE LEVEL 27 MEQ/L (21-32); CHLORIDE LEVEL 104 MEQ/L (98-107); CREATININE FOR GFR 0.66 MG/DL (0.55-1.30); GLOMERULAR FILTRATION RATE > 60.0 (>60); GLUCOSE, FASTING 92 MG/DL (70-100); POTASSIUM SERUM 4.3 MEQ/L (3.5-5.1); SODIUM LEVEL 139 MEQ/L (136-145); TOTAL PROTEIN 6.8 GM/DL (6.4-8.2)
== END ==
LOC: M WUC 17:51
PROVIDERS: ATTEND Advanced Practice Midwife
DX: O99.613 Diseases of the digestive system complicating pregnancy, third trimester (principal); Z3A.00 Weeks of gestation of pregnancy not specified

== ENCOUNTER → 2019-08-05 | Outpatient (CLI) | payer OTHER, MEDICAID ==
--- NOTE | 2019-08-05 13:08 | REP ---
OB ULTRASOUND/BIOPHYSICAL PROFILE: Real-time sonographic evaluation of the gravid uterus is performed. There is a single living intrauterine gestation. Estimated gestational age 34 weeks 5 days, EDC 09/11/2019. Cervix is closed and measures 3.6 cm in length. heart rate 141 beats per minute. Amniotic fluid within normal limits. ASTER 14.1 within normal range of 8.0-24.9. Biophysical profile score 8/8. S/D ratio 2.13 within normal range of 2.0-3.0. RI 0.53 below normal range of 0.59-0.75. position vertex. Placenta anterior and grade 1 with no previa or abruption. Electronically Signed by Silas Quinones MD 08/05/2019 05:55 P
== END ==
LOC: M RAD 10:08
PROVIDERS: ATTEND Obstetrics & Gynecology
DX: O26.893 Other specified pregnancy related conditions, third trimester (principal); R94.5 Abnormal results of liver function studies; Z3A.32 32 weeks gestation of pregnancy

== ENCOUNTER → 2019-08-05 | Outpatient (REF) | payer OTHER, MEDICAID | LOC: M LAB REF 13:09 | PROVIDERS: ATTEND Advanced Practice Midwife | DX: O26.613 Liver and biliary tract disorders in pregnancy, third trimester (principal); Z36.85 Encounter for antenatal screening for Streptococcus B; Z3A.00 Weeks of gestation of pregnancy not specified ==

== ENCOUNTER 2019-08-08 11:58 | Outpatient (CLI) | payer OTHER, MEDICAID ==
[~2019-08-08] VITALS: Ht 170.2 cm; Wt 110.6 kg
[~2019-08-08 11:58] MED LIST changes: -TUMS750C5 PO
[2019-08-08] MEDS ORDERED: TUMS750C5 PO (12:12)
[2019-09-22] MEDS ORDERED: PREN29TA4 PO (10:34)
[2019-11-15] MEDS ORDERED: OXYC1TAB23 PO (14:46)
== END 2019-08-08 13:06 | disposition home or self-care (01) ==
LOC: M LDO 11:58
PROVIDERS: ATTEND Obstetrics & Gynecology
DX: O26.893 Other specified pregnancy related conditions, third trimester (principal); Z3A.35 35 weeks gestation of pregnancy
CPT/HCPCS: 59025; 76815; G0378; G0463

== ENCOUNTER → 2019-08-13 | Outpatient (CLI) | payer OTHER, MEDICAID ==
[~2019-08-13] MED LIST changes: +IBUP-1022 PO; +TUMS750C5 PO
--- NOTE | 2019-08-13 13:03 | REP ---
OB ULTRASOUND/BIOPHYSICAL PROFILE: Real-time sonographic evaluation of the gravid uterus is performed. There is a single living intrauterine gestation. The estimated gestational age is 35 weeks 6 days with EDC 09/11/2019. heart rate is 160 beats per minute. Amniotic fluid is within normal limits. The ASTER is 15.4 within normal range of 7.7 to 24.9. Biophysical profile is 8/8. S/D ratio 2.27 within normal range. RI 0.56 below normal range of 0.59 to 0.75. position is vertex. Placenta is anterior and grade 1 with no previa or abruption. IMPRESSION: Biophysical profile score 8/8. Electronically Signed by Silas Quinones MD 08/17/2019 08:49 A
== END ==
LOC: M RAD 10:27
PROVIDERS: ATTEND Obstetrics & Gynecology
DX: Z34.83 Encounter for supervision of other normal pregnancy, third trimester (principal)

== ENCOUNTER 2019-08-18 15:45 | Outpatient (CLI) | payer OTHER, MEDICAID ==
[~2019-08-18] VITALS: Ht 170.2 cm; Wt 110.4 kg
[~2019-08-18 15:45] MED LIST changes: -IBUP-1022 PO
[2019-08-18 16:03] VITALS: BP 116/75
[2019-08-18 17:18] VITALS: BP 122/74
[2019-08-18] MEDS ORDERED: FAMOTIDINE 20 MG TAB PO ONE (18:00)
--- NOTE | 2019-08-18 18:15 | IPN ---
DATE: 08/18/2019 Ghazala is a 23-year-old 3, para 2-0-0-2 at 36-4/7 weeks, estimated date of confinement (EDC) of 09/11/2019 based on last menstrual period and confirmed by first-trimester ultrasound. She presents to labor and delivery today with report of some occasional contractions, shortness of breath, and some chest pain. She does report some pink show. She denies large gush of fluid. The fetus has been active. Her care was initiated at [facility] in the first trimester. Her course complicated by current cholestasis, cholelithiasis, mild fatty liver, a history of depression, and asthma that has been well controlled throughout her . OBSTETRIC HISTORY: February 2017, 37 weeks, 5-pound 12-ounce male, spontaneous vaginal delivery, following induction for cholestasis. April 2018. 37 weeks, 6-pound 1-ounce female following induction for cholestasis. OBSTETRIC LABORATORIES: A positive, antibody screen negative, rubella immune, VDRL nonreactive. Urine culture: No growth. Hepatitis B surface antigen negative, HIV negative. Hepatitis C antibody nonreactive. Gonorrhea and chlamydia negative. Panorama testing for aneuploidy: Low risk, female fetus. Gestational diabetic screening normal at 91, and her GBS is negative. PAST MEDICAL HISTORY: 1. depression. 2. Asthma. SURGERIES: Myringotomy. FAMILY HISTORY: Posttraumatic stress disorder (PTSD), bipolar, pulmonary embolus, diabetes. SOCIAL HISTORY: The patient is . Her is at bedside and supportive. She is a nonsmoker. She denies alcohol and drug use. She does have a history of chlamydia at age 16. Denies any history of abuse, physical, sexual, and emotional. ALLERGIES: Latex. CURRENT MEDICATIONS: - ursodiol 500 mg - Vistaril 50 mg - Claritin 10 mg - Tylenol as needed - vitamin - Benadryl 25 mg OBJECTIVE: Temperature 98.2, pulse 90, respirations 16, blood pressure (BP) is 122/74. She is alert and oriented times three. She is in no apparent distress. She has easy respirations and does not appear uncomfortable. She talks without difficulty and moves without an assist and with no distress. The heart rate is 140, moderate variability, positive accelerations, negative decelerations. There is an occasional contraction. Sterile vaginal exam: 2 cm dilated, 50% effaced, ballottable station, very posterior and soft. No show with the exams. Her lungs are clear bilaterally. No rales. No rhonchi. Her heart has a regular rate and rhythm. There is no murmur. ASSESSMENT: Intrauterine at 36-4/7 weeks. heart rate category 1. Likely normal discomforts of . Possible heartburn. PLAN: Pepcid by mouth. Regular diet. Will likely discharged home after dinner. Reviewed signs and symptoms of labor, kick counts, and danger signs to report. Reviewed access to care. The patient is scheduled for an induction due to cholestasis in 4 days. The patient and her 's questions have been answered and are agreeable to this point.
[2019-08-18 18:57] VITALS: BP 124/75
[2019-08-18 19:58] VITALS: BP 116/73
== END 2019-08-18 20:00 | disposition home or self-care (01) ==
LOC: M LDO 15:45
PROVIDERS: ATTEND Advanced Practice Midwife
DX: O26.893 Other specified pregnancy related conditions, third trimester (principal); R12 Heartburn; O47.03 False labor before 37 completed weeks of gestation, third trimester; Z3A.36 36 weeks gestation of pregnancy
CPT/HCPCS: 59025; G0378; G0463

== ENCOUNTER → 2019-08-19 | Outpatient (CLI) | payer OTHER, MEDICAID ==
[~2019-08-19] MED LIST changes: +IBUP-1022 PO
--- NOTE | 2019-08-20 04:37 | REP ---
Clinical: well-being Comparison: Findings: Examination demonstrates a single live intrauterine in cephalic presentation. motion is identified by technologist. Placenta is noted anterior and grade 3 without evidence for placenta previa or abruption. Amniotic fluid volume is normal. Cervix appears closed. Nuchal cord noted. Gestational age by LMP 36 weeks 5 days with RAQUEL 09/11/2019 . Gestational age by current measurements 37 weeks 4 days with RAQUEL 09/05/2019 . FHR equals 167 beats per minute. BPD 9.1 cm 37 weeks 1 day HC 32.3 cm 36 weeks 4 days AC 33.2 cm 37 weeks 1 day FL 7.7 cm 39 weeks 2 day HL 6.5 cm 37 weeks 4 days HC/AC ratio 0.97 Estimated weight 3249 grams ( 68th percentile). Biophysical profile score: 8/8 Amniotic fluid index: 16.5 cm Umbilical cord SD ratio: 2.66 Impression: 1. Single live advanced gestation in cephalic presentation demonstrating appropriate interval growth. 2. Nuchal cord noted. 3. Biophysical profile score, amniotic fluid index, and SD ratio normal Electronically Signed by Vu Overton MD 08/20/2019 04:28 A
== END ==
LOC: M RAD 13:36
PROVIDERS: ATTEND Advanced Practice Midwife
DX: O26.613 Liver and biliary tract disorders in pregnancy, third trimester (principal); Z3A.36 36 weeks gestation of pregnancy; R94.5 Abnormal results of liver function studies

== ENCOUNTER 2019-08-23 11:19 | Inpatient (IN) | payer OTHER, MEDICAID ==
[~2019-08-23] VITALS: Ht 170.2 cm; Wt 108.7 kg
[2019-08-23] VITALS (16 sets, daily range): BP systolic 117–142; BP diastolic 60–86
[~2019-08-23 11:19] MED LIST changes: -IBUP-1022 PO
[2019-08-23] MEDS: LR 1,000 ML IV SCH ×2 (11:55→12:32)
[2019-08-23] MEDS ORDERED: OXYTOCIN DRIP 30 UNITS in IV 1 EA IV SCH ×2 (12:15→19:22)
[2019-08-23 12:28] LABS: HEMATOCRIT 34.6 % (36.0-47.0); HEMOGLOBIN 10.9 g/dl (12.0-15.5); MEAN CORPUSCULAR HEMOGLOBIN 25.7 pg (27.0-33.0); MEAN CORPUSCULAR HGB CONC 31.5 g/dl (32.0-36.5); MEAN CORPUSCULAR VOLUME 81.6 fl (80.0-96.0); PLATELET COUNT, AUTOMATED 332 10^3/uL (150-450); RED BLOOD COUNT 4.24 10^6/uL (4.00-5.40); WHITE BLOOD COUNT 9.3 10^3/uL (4.0-10.0)
--- NOTE | 2019-08-23 13:27 | HPEPDOC ---
Obstetrical History & Physical General Date of Admission Aug 23, 2019 at 11:19 Primary Care Physician: ROSAURA DE SOUZA CNM History of Present Illness Patient is a 23-year-old female who is a at 37.2 weeks gestation with an RAQUEL of 09/11/19 based off of her 1st trimester ultrasound. She initiated care in her first trimester with [facility]. Her has been complicated by cholestasis, gallstones, a fatty liver, and asthma. She presents to L&D today for an IOL related to cholestasis. She reports occasional contractions and active movement. She denies leaking of fluid or vaginal bleeding. Chief Complaint: Other (cholestasis) Age: 23 : 3 Term: 2 Pre-term: 0 Abortions: 0 Livin Care Care: Good Care Dating Final EDC: Jul 11, 2019 Final EDC by: 1st trimester (US) EGA at Admission: 37.2 Antepartum Course Diagnos(e)s cholestasis fatty liver gallstones Asthma Height (inches): 67 Pre- weight (lbs.): 247 Admission Weight (lbs.): 247 Change in Weight (lbs.): 0 Past Medical History Past Obstetrical History #1: Past Obstetrical History: Primgravida Gestation: 37.1 Type of Delivery: Spontaneous Vaginal Del. (February 2017) Sex of : Male (weight 5 lbs 12 oz. ) Complications: Yes (cholestasis) Past Obstetrical History #2: Past Obstetrical History: Multigravida Gestation: 37 Type of Delivery: Spontaneous Vaginal Del. (April 2018) Sex of Infant: Female (6 lbs 1 oz. 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 at age 16) Past Medical History Medical History Asthma Surgical History: Other (myringotomy laser) Family History Significant Family History: Diabetes, Other (PTSD, Bipolar) Social History Marital Status: Family situation: Spouse/partner home Psychosocial History: Depression ( depression) * Smoker: former Smoker Alcohol: Denies Drugs: denies Allergies Coded Allergies: [place] (Verified Allergy, Mild, rash, 08/08/19) latex (Verified Allergy, Mild, Rash, 08/08/19) Medications Scheduled Calcium Carbonate (Tums) 300 Mg Tab.chew, 1 TAB PO PRN Ursodiol (Ursodiol) 300 Mg Capsule, 500 MG PO BID Physical Examination Physical Examination GENERAL: Alert and oriented times three. BREAST: . ABDOMEN: Gravid and non-tender to touch. FETUS: Is vertex (VTX) by sterile vaginal examination (SVE), fetus is vertex (VTX) by Joce. HEART RATE: Regular rate and rhythm. LUNGS: Clear to auscultation (CTA). EXTREMITIES: No edema. No clonus. Deep tendon reflexes (DTRs) + 2. Vital Signs/I&O Vital Signs Date Time Temp Pulse Resp B/P (MAP) Pulse Ox O2 Delivery O2 Flow Rate FiO2 08/23/19 12:10 97.2 92 18 126/73 (90) Room Air Laboratory Data 24H LABS Laboratory Tests 2 08/23/19 11:30: Serology Scanned Report Hepatitis B Testing 08/23/19 12:15: Nucleated Red Blood Cells % (auto) 0.0 CBC/BMP Laboratory Tests 08/23/19 12:15 Urine Culture: No Growth Pertinent Laboratoy Data Blood Type: A+ RBC Antibody Screen: Negative HIV: Negative Hepatitis B: Negative Hepatitis C: Negative Rapid Plasma Reagin: Nonreactive Rubella: Immune Chlamydia/Gonorrhea: Negative Group B Streptococcus: Negative Glucose Tolerance Test: 91 Diag/Inter Therapy NIPT low risk normal female Anatomy Ultrasound Ultrasound Date: Aug 13, 2019 Placenta Location: Anterior Normal Anatomy: Yes Placenta Previa: No Vaginal Examination Dilation: 4 cm Effacement: 70% Station: -2 Cervical Consistency: Soft Cervical Position: Anterior Presentation: Cephalic presentation Position: Vertex (occiput) Assessment Heart Rate (FHR): 130 Variability: Moderate Accelerations: Positive Decelerations: None Tocometer Contractions: Yes Frequency: irregular Multi-drug resistant Organism: No history of MDRO Assessment/Plan Assessment IUP at 37.2 weeks gestation Cholestasis and biliary disorders of Category I FHR tracing GBS negative Plan Admit to L&D OOB ad ivana. Diet: clears. Group B Streptococcus (GBS) negative. Labs and intravenous (IV) per unit protocol. Anesthesia consult per patient's request. Counseled on IV Pitocin and induction of labor (IOL). Lactated Ringers (LR): at 125 mL/hr. Anticipate cervical change and . ROSAURA DE SOUZA CNM Aug 23, 2019 13:27
--- NOTE | 2019-08-23 16:03 | IPNPDOC ---
Obstetrical Progress Note Date of Service Aug 23, 2019 Subjective Patient feeling contractions but coping well with them. Objective Vital Signs Date Time Temp Pulse Resp B/P (MAP) Pulse Ox O2 Delivery O2 Flow Rate FiO2 08/23/19 13:57 105 125/73 (90) 08/23/19 12:10 97.2 18 Room Air Assessment Heart Rate (FHR): 135 Variability: Moderate Accelerations: Positive Decelerations: None Heart Rate Tracing: Category I Tocometer Contractions: Yes Frequency: regular Sterile Vaginal Examination Dilation: 4 cm Effacement (%): 70% Station: -2 Cervical Consistency: Soft Cervical Position: Anterior Postion/Presentation: Cephalic presentation Assessment and Plan Age: 23 : 3 Term: 2 Pre-term: 0 Abortions: 0 Livin EGA at Admission: 37.2 Status: Reassuring Group B Streptococcus: Positive Anticipate: Vaginal Delivery Additional Comments AROM to a large amount of clear fluid. IV Pitocin is at 14 mu/min. ROSAURA DE SOUZA CNM Aug 23, 2019 16:03
[2019-08-23] MEDS ORDERED: BUTORPHANOL 2 MG/ML INJ (J0595) As Ordered ONE (18:35)
--- NOTE | 2019-08-23 18:49 | IPNPDOC ---
Obstetrical Progress Note Date of Service Aug 23, 2019 Subjective Patient desires something to help get her through the last stage of labor. Objective Vital Signs Date Time Temp Pulse Resp B/P (MAP) Pulse Ox O2 Delivery O2 Flow Rate FiO2 08/23/19 16:15 98.6 96 18 134/86 (102) 08/23/19 12:10 Room Air Assessment Heart Rate (FHR): 140 Variability: Moderate Accelerations: Positive Heart Rate Tracing: Category II Tocometer Contractions: Yes Frequency: regular Sterile Vaginal Examination Dilation: 8 cm Effacement (%): 100% Station: 0 Postion/Presentation: Cephalic presentation Assessment and Plan Additional Comments IV Pitocin is at 18 mu/min ROSAURA DE SOUZA CNM Aug 23, 2019 18:49
[2019-08-23] MEDS ORDERED: BUTORPHANOL 2 MG/ML INJ (J0595) IV ONE (19:00)
--- NOTE | 2019-08-23 19:25 | DNPDOC ---
[facility] Delivery Note Delivery Note DATE OF DELIVERY: 08/23/2019 at 1836 PREDELIVERY DIAGNOSIS: 37-2/7 weeks' gestation and labor. POST DELIVERY DIAGNOSIS: Delivered. PROCEDURE: Spontaneous vaginal delivery. Provider: Rosaura Lee CNM, DEANDRE ANESTHESIA: none. ESTIMATED BLOOD LOSS: 250 mL. FINDINGS: 7 pounds 3 ounces, 3270 grams, female infant, Score 9/9, nuchal cord times x1 loose, cholestasis, gallstones and fatty liver. DELIVERY SUMMARY: Patient is a 23-year-old female who is a at 37.2 weeks gestation who presented to L&D for an IOL for cholestasis. She received IV Pitocin for her induction. The patient progressed to fully dilated at 1836 and pushed to a living female in the CHINO position with restitution to ROT. The anterior shoulder delivered with ease and the corpus immediately followed. The cord was clamped after 2 minutes and cut by the FOB. A 3-vessel cord was noted. The placenta delivered spontaneous and intact at 1839. Uterine hemostasis was achieved via rapid infusion of IV Pitocin and fundal massage. The cervix, vagina, and perineum was inspected and found to be intact. Mom plans to bottle feed. They are naming their daughter Vernell. All counts of sponges and instruments were correct. ROSAURA LEE CNM Aug 23, 2019 19:25
[2019-08-23] MEDS ORDERED: ANUSOL HC CREAM 30GM TOP PRN (19:30)
[2019-08-23] MEDS ORDERED: METHYLERGONOVINE MALEATE 0.2 MG TAB PO PRN (19:30)
[2019-08-23] MEDS ORDERED: RHOGAM 300 MCG (1500 IU) INJ (J2790) IM SCH (19:30)
[2019-08-23] MEDS ORDERED: DIBUCAINE 1% OINTMENT 30GM TOP PRN (19:30)
[2019-08-23] MEDS ORDERED: MEASLES,MUMPS,RUBELLA VACCINE INJ (MMR-II) (90707) SC SCH (19:30)
[2019-08-23] MEDS ORDERED: ACETAMINOPHEN 500 MG TAB PO PRN (19:30)
[2019-08-23] MEDS ORDERED: DOCUSATE SODIUM 100 MG CAP PO PRN (19:30)
[2019-08-23] MEDS ORDERED: ACETAMINOPHEN TAB 650MG DOSE (2X325MG) PO PRN (19:30)
[2019-08-23] MEDS ORDERED: IBUPROFEN 800 MG TAB PO PRN (19:30)
[2019-08-24] MEDS: IBUPROFEN 600 MG TAB PO PRN ×2 (00:08→06:00)
[2019-08-24] MEDS: LR 1,000 ML IV SCH (04:07)
[2019-08-24 05:57] VITALS: BP 119/73
[2019-08-24 06:54] VITALS: BP 117/60
[2019-08-24] MEDS ORDERED: PRENATAL VITAMINS CHEWABLE TABLET PO SCH (09:00)
[2019-08-24] MEDS ORDERED: IBUP-1022 PO (17:31)
== END 2019-08-24 20:35 | disposition home or self-care (01) | DRG 805 ==
LOC: M LDI 11:19 → M OBS 20:22
PROVIDERS: ADMIT Advanced Practice Midwife; ATTEND Advanced Practice Midwife
PROC: 10E0XZZ Delivery of Products of Conception, External Approach (ICD-10-PCS; principal; 2019-08-23)
PROC: 10907ZC Drainage of Amniotic Fluid, Therapeutic from Products of Conception, Via Natural or Artificial Opening (ICD-10-PCS; 2019-08-23)
PROC: 3E033VJ Introduction of Other Hormone into Peripheral Vein, Percutaneous Approach (ICD-10-PCS; 2019-08-23)
DX: O26.62 Liver and biliary tract disorders in childbirth (principal); Z37.0 Single live birth; K83.1 Obstruction of bile duct; Z3A.37 37 weeks gestation of pregnancy; O99.52 Diseases of the respiratory system complicating childbirth; J45.909 Unspecified asthma, uncomplicated; K76.0 Fatty (change of) liver, not elsewhere classified; Z87.891 Personal history of nicotine dependence; Z79.899 Other long term (current) drug therapy; O69.81X0 Labor and delivery complicated by cord around neck, without compression, not applicable or unspecified

== ENCOUNTER 2019-10-06 11:11 | Day surgery (SDC) | payer OTHER, MEDICAID ==
[~2019-10-06] VITALS: Ht 170.2 cm; Wt 90.7 kg
[~2019-10-06 11:11] MED LIST changes: +IBUP-1022 PO; +LIDOCAINE 1% MDV 20ML VIAL SQ PRN; +LR 1,000 ML IV ONE; +PREN29TA4 PO
[2019-10-06 11:48] LABS: HEMATOCRIT 43.3 % (36.0-47.0); MEAN CORPUSCULAR HEMOGLOBIN 25.3 pg (27.0-33.0); MEAN CORPUSCULAR VOLUME 84.4 fl (80.0-96.0); PLATELET COUNT, AUTOMATED 331 10^3/uL (150-450); RED BLOOD COUNT 5.13 10^6/uL (4.00-5.40); WHITE BLOOD COUNT 8.3 10^3/uL (4.0-10.0)
[2019-10-06] MEDS ORDERED: BUPIVACAINE HCL 0.25% 10 ML VIAL As Ordered ONE (12:10)
[2019-10-06] MEDS ORDERED: PROPOFOL 200 MG/20 ML VIAL As Ordered ONE (12:39)
[2019-10-06] MEDS ORDERED: ONDANSETRON 4MG/2ML VIAL (J2405) As Ordered ONE (12:39)
[2019-10-06] MEDS ORDERED: fentaNYL 100 MCG/2 ML INJECTION (J3010) As Ordered ONE (12:39)
[2019-10-06] MEDS ORDERED: LIDOCAINE 2% INJ 100 MG/5 ML SDV (FOR ANES.) As Ordered ONE (12:39)
[2019-10-06] MEDS ORDERED: HYDROmorphone HCL 2 MG/ML 1ML VIAL (J1170) As Ordered ONE (12:39)
[2019-10-06] MEDS ORDERED: ROCURONIUM BROMIDE 50 MG/5 ML VIAL As Ordered ONE (12:39)
[2019-10-06] MEDS ORDERED: KETOROLAC 60 MG/2 ML VIAL (J1885) As Ordered ONE (12:39)
[2019-10-06] MEDS ORDERED: MIDAZOLAM INJ 2 MG/2 ML VIAL (J2250) As Ordered ONE (12:39)
[2019-10-06] MEDS ORDERED: dexameTHASONE 4 MG/ML 1ML VIAL (J1100) As Ordered ONE (12:39)
[2019-10-06] MEDS ORDERED: OXYC1TAB23 PO (12:42)
[2019-10-06] MEDS ORDERED: SUGAMMADEX SODIUM 500 MG/5 ML VIAL (BRIDION) As Ordered ONE (12:54)
--- NOTE | 2019-10-06 13:31 | RO ---
DATE OF PROCEDURE: 10/06/2019 PREOPERATIVE DIAGNOSIS: Undesired fertility. POSTOPERATIVE DIAGNOSIS: Undesired fertility. PROCEDURE: Laparoscopic bilateral salpingectomy. SURGEON: Dr. Dave Farmer MERCHANDISE FLOW TEAM LEADER: ANESTHESIA: General endotracheal. ESTIMATED BLOOD LOSS: 10 mL. URINE OUTPUT: 50 mL. FINDINGS: Normal pelvis including uterus, fallopian tubes and ovaries. Normal upper abdomen. Possible accessory lobe to the liver noted. OPERATIVE SUMMARY: Patient was taken to the operating room where general endotracheal anesthesia was induced. She was prepped and draped in sterile fashion in the dorsal lithotomy position. The bladder was emptied with a catheter. A sponge stick was placed in the vagina to use a manipulator. A periumbilical incision was made with the scalpel. A Veress needle was placed through this incision while tenting up on the skin of the abdomen. Intra-abdominal location of the Veress needle was assessed by the use of a saline filled syringe. A pneumoperitoneum was created. The Veress needle was removed. A 5 mm trocar using Visiport was inserted through this incision. A 5 and 8 mm suprapubic port respectively were placed under direct visualization. Attention was turned to the fallopian tubes. The fallopian tubes were grasped with instruments and elevated. The LigaSure device was used to coagulate and incise broad ligament attachments to the tubes. The tubes were amputated near their insertion site. The fallopian tubes were removed through the suprapubic ports. The pneumoperitoneum was released. All instruments were removed. The skin was closed with #4-0 Monocryl subcuticular sutures. Sponge, instrument and needle counts were correct.
[2019-10-06] MEDS ORDERED: PERCOCET 5MG/325MG TAB As Ordered ONE (13:32)
[2019-10-06] MEDS ORDERED: LR 1,000 ML IV SCH (13:45)
[2019-10-06] MEDS ORDERED: ONDANSETRON 4MG/2ML VIAL (J2405) IV PRN (13:45)
[2019-10-06] MEDS ORDERED: PERCOCET 5MG/325MG TAB PO PRN ×2 (13:45)
[2019-10-06] MEDS ORDERED: METOCLOPRAMIDE INJ 10MG/2ML VIAL (J2765) IV PRN (13:45)
[2019-10-06] MEDS ORDERED: fentaNYL 100 MCG/2 ML INJECTION (J3010) IV PRN (13:45)
[2019-10-06 14:40] VITALS: BP 116/83
== END 2019-10-06 15:56 | disposition home or self-care (01) ==
LOC: M SDC 11:11
PROVIDERS: ATTEND Specialist
DX: Z30.2 Encounter for sterilization (principal); J45.909 Unspecified asthma, uncomplicated; Z91.040 Latex allergy status
CPT/HCPCS: 36415; 58661; 81025; 85027; 88302; J1100; J1170; J1885; J2250; J2405; J3010

== ENCOUNTER 2019-10-09 06:17 | Emergency (ER) | payer OTHER, MEDICAID ==
[~2019-10-09] VITALS: Ht 170.2 cm; Wt 100.0 kg
[~2019-10-09 06:17] MED LIST changes: -LIDOCAINE 1% MDV 20ML VIAL SQ PRN; -LR 1,000 ML IV ONE; +OXYC1TAB23 PO
[2019-10-09 07:40] LABS: APPEARANCE, URINE CLEAR (CLEAR); BACTERIA, URINE AUTO NEGATIVE (NEGATIVE); BILIRUBIN, URINE AUTO NEGATIVE (NEGATIVE); BLOOD, URINE BLOOD NEGATIVE (NEGATIVE); COLOR, URINE STRAW (YELLOW); GLUCOSE, URINE (UA) AUTO NEGATIVE (NEGATIVE); KETONE, URINE AUTO NEGATIVE (NEGATIVE); LEUKOCYTE ESTERASE, URINE AUTO NEGATIVE (NEGATIVE); MUCUS, URINE SMALL (NEGATIVE); NITRITE, URINE AUTO NEGATIVE (NEGATIVE); PROTEIN, URINE AUTO NEGATIVE (NEGATIVE); RBC, URINE AUTO 2 /HPF (0-3); SPECIFIC GRAVITY URINE AUTO 1.015 (1.002-1.035); SQUAMOUS EPITHELIAL CELL UR AU 0 /HPF (0-6); UROBILINOGEN, URINE AUTO 0.2 mg/dL (0.0-2.0); WBC, URINE AUTO 1 /HPF (0-3)
[2019-10-09 07:53] LABS: BASO % 0.3 % (0.0-1.0); EOS # 0.1 10^3/uL (0.0-0.5); EOS % 1.3 % (0.0-3.0); HEMATOCRIT 35.8 % (36.0-47.0); HEMOGLOBIN 10.7 g/dl (12.0-15.5); LYMPH # 3.1 10^3/uL (1.5-5.0); LYMPH % 39.8 % (24.0-44.0); MEAN CORPUSCULAR HEMOGLOBIN 25.4 pg (27.0-33.0); MEAN CORPUSCULAR HGB CONC 29.9 g/dl (32.0-36.5); MEAN CORPUSCULAR VOLUME 84.8 fl (80.0-96.0); MONO # 0.7 10^3/uL (0.0-0.8); MONO % 9.3 % (0.0-5.0); NEUTROPHILS # 3.8 10^3/uL (1.5-8.5); PLATELET COUNT, AUTOMATED 293 10^3/uL (150-450); RED BLOOD COUNT 4.22 10^6/uL (4.00-5.40); WHITE BLOOD COUNT 7.8 10^3/uL (4.0-10.0)
--- NOTE | 2019-10-09 08:03 | ECGEPIP ---
[facility] - ED Test Date: 2019-10-09 Pat Name: KAELYN JIMÉNEZ Department: Room: - Gender: Female Ramp Lead: : 1995 Requested By: Merle CROFTP Order Number: [id number] Reading MD: Saida Medina Measurements Intervals [place] Rate: 58 P: 31 KS: 165 QRS: 44 QRSD: 96 T: 39 QT: 395 QTc: 390 Interpretive Statements SINUS BRADYCARDIA WITH SINUS ARRHYTHMIA NSTTW abnormalities No prior Electronically Signed on 10-09-2019 8:03:17 EST by Saida Medina
--- NOTE | 2019-10-09 08:16 | REPVR ---
PROCEDURE INFORMATION: Exam: US Duplex Lower Extremity Veins Exam date and time: 10/09/2019 7:38 AM Age: 23 years old Clinical history: Pain; Leg, upper; Right; Additional info: R/O dvt TECHNIQUE: Imaging protocol: Real-time duplex ultrasound of the Lower Extremities with 2-D jung scale, color Doppler flow and spectral waveform analysis with image documentation. Complete exam focused on the bilateral lower extremity veins. COMPARISON: No relevant prior studies available. FINDINGS: Right deep veins: Unremarkable. The common femoral, femoral, proximal profunda femoral and popliteal veins are patent without thrombus. Normal Doppler waveforms. Normal compressibility and/or augmentation response. Left deep veins: Unremarkable. The common femoral, femoral, proximal profunda femoral and popliteal veins are patent without thrombus. Normal Doppler waveforms. Normal compressibility and/or augmentation response. Soft tissues: No popliteal cyst. IMPRESSION: No evidence of deep venous thrombosis in the common femoral to popliteal veins bilaterally. Electronically signed by: Vu Holm On 10/09/2019 08:16:15 AM
[2019-10-09 08:17] LABS: BLOOD UREA NITROGEN 18 MG/DL (7-18); CALCIUM LEVEL 9.2 MG/DL (8.5-10.1); CARBON DIOXIDE LEVEL 30 MEQ/L (21-32); CHLORIDE LEVEL 107 MEQ/L (98-107); CREATININE FOR GFR 0.89 MG/DL (0.55-1.30); GLOMERULAR FILTRATION RATE > 60.0 (>60); GLUCOSE, FASTING 84 MG/DL (70-100); POTASSIUM SERUM 4.3 MEQ/L (3.5-5.1); SODIUM LEVEL 143 MEQ/L (136-145)
--- NOTE | 2019-10-09 08:31 | REP ---
CHEST PA AND LATERAL: 10/09/2019. CLINICAL HISTORY: Right chest and shoulder pain. 3 days status post BTL. FINDINGS: No prior studies. The lung roque are well inflated. There is no infiltrate, pleural effusion, lateral pleural thickening, or mass. No evidence of pneumothorax or pneumomediastinum. There is no free air under the diaphragm. I see no significant atelectatic change. The heart, mediastinal and hilar contours are normal. The aorta and airway are intact. Bony thorax shows no focal lesion. IMPRESSION: 1. No acute cardiopulmonary change. Electronically Signed by Leonel Baker MD 10/09/2019 07:40 P
[2019-10-09 08:56] VITALS: BP 116/70
== END 2019-10-09 08:57 | disposition home or self-care (01) ==
LOC: M ED 06:17
DX: M79.651 Pain in right thigh (principal); R07.9 Chest pain, unspecified; Z98.890 Other specified postprocedural states; Z83.2 Family history of diseases of the blood and blood-forming organs and certain disorders involving the immune mechanism; Z91.040 Latex allergy status; J30.1 Allergic rhinitis due to pollen; Z79.899 Other long term (current) drug therapy

== ENCOUNTER 2019-10-27 15:49 | Emergency (ER) | payer OTHER, MEDICAID ==
[~2019-10-27] VITALS: Ht 170.2 cm; Wt 103.9 kg
[2019-10-27] MEDS ORDERED: TUMS500C PO (16:01)
[2019-10-27] MEDS ORDERED: GAS X (16:01)
[2019-10-27] MEDS ORDERED: MORPHINE 4 MG/ML 1ML VIAL/SYRINGE (J2270) IV PRN (16:15)
[2019-10-27] MEDS ORDERED: ONDANSETRON 4MG/2ML VIAL (J2405) IV ONE (16:15)
[2019-10-27] MEDS ORDERED: NS 1,000 ML IV ONE (16:15)
[2019-10-27 16:43] LABS: URINE PREG TEST NEGATIVE (NEGATIVE)
[2019-10-27 16:46] LABS: BASO % 0.3 % (0.0-1.0); EOS % 0.2 % (0.0-3.0); HEMATOCRIT 42.8 % (36.0-47.0); HEMOGLOBIN 12.9 g/dl (12.0-15.5); LYMPH # 2.5 10^3/uL (1.5-5.0); LYMPH % 25.2 % (24.0-44.0); MEAN CORPUSCULAR HEMOGLOBIN 25.2 pg (27.0-33.0); MEAN CORPUSCULAR HGB CONC 30.1 g/dl (32.0-36.5); MEAN CORPUSCULAR VOLUME 83.6 fl (80.0-96.0); MONO # 0.7 10^3/uL (0.0-0.8); NEUTROPHILS # 6.6 10^3/uL (1.5-8.5); NEUTROPHILS % 66.8 % (36.0-66.0); PLATELET COUNT, AUTOMATED 378 10^3/uL (150-450); RED BLOOD COUNT 5.12 10^6/uL (4.00-5.40); WHITE BLOOD COUNT 9.9 10^3/uL (4.0-10.0)
--- NOTE | 2019-10-27 16:54 | REP ---
Clinical: Right upper quadrant pain. Technique: Real time jung scale ultrasound examination using curved array transducer. Findings: Gallbladder demonstrates gallstones without wall thickening or pericholecystic fluid. No biliary ductal dilatation is appreciated and the common bile duct measures 4.0 mm diameter. Liver is mildly heterogeneous and echogenic suggesting fatty infiltration. No focal hepatic lesion identified. Visualized portions of the pancreas are normal but limited due to interposed bowel gas. Right kidney is normal in reniform shape without hydronephrosis and measures 10.0 x 5.2 x 3.8 cm. No ascites. Impression: Cholelithiasis without sonographic evidence for acute cholecystitis. Hepatic steatosis Electronically Signed by Vu Overton MD 10/27/2019 04:45 P
[2019-10-27 17:12] LABS: ALT/SGPT 65 U/L (12-78); BILIRUBIN,DIRECT 0.2 MG/DL (0.0-0.2); BILIRUBIN,TOTAL 0.4 MG/DL (0.2-1.0); CK-MB VALUE MASS < 1.0 NG/ML (<3.6); CPK CREATINE PHOSPHOKINASE 35 U/L (26-192); LIPASE 124 U/L (73-393); MB/CK RELATIVE INDEX 2.86 (< OR =4); TROPONIN I < 0.02 NG/ML (< 0.10)
[2019-10-27] MEDS ORDERED: OXYCODONE/APAP 5MG/325MG(BULK FOR ED) 1 TABLET PO ONE (18:15)
[2019-10-27 18:36] VITALS: BP 121/77
--- NOTE | 2019-10-27 19:47 | ECGEPIP ---
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
== END 2019-10-27 18:41 | disposition home or self-care (01) ==
LOC: M ED 15:49
DX: K80.51 Calculus of bile duct without cholangitis or cholecystitis with obstruction (principal); K76.0 Fatty (change of) liver, not elsewhere classified; K21.9 Gastro-esophageal reflux disease without esophagitis; J45.909 Unspecified asthma, uncomplicated; Z79.899 Other long term (current) drug therapy; Z91.040 Latex allergy status
CPT/HCPCS: 76705; 80047; 80076; 81001; 82550; 82553; 83690; 84484; 84703; 85025; 93005; 96374; 96375; 99284; J2270; J2405

== ENCOUNTER 2019-11-19 06:56 | Day surgery (SDC) | payer OTHER, MEDICAID ==
[~2019-11-19] VITALS: Ht 170.2 cm; Wt 106.1 kg
[~2019-11-19 06:56] MED LIST changes: +AMPICILLIN SOD/SULBACTAM SOD 3 GM in D5W MINI-BAG PLUS 100 ML IV ONE; +GAS X; +LR 1,000 ML IV ONE
[2019-11-19] MEDS ORDERED: BUPIVACAINE HCL 0.25% 30 ML VIAL As Ordered ONE (07:25)
[2019-11-19] MEDS ORDERED: LIDOCAINE 1% SDV INJ 30 ML VIAL As Ordered ONE (07:26)
[2019-11-19] MEDS ORDERED: ACETAMINOPHEN 1000MG 100ML IV BTL (OFIRMEV) (J0131 PER 10MG) As Ordered ONE (08:16)
[2019-11-19] MEDS ORDERED: KETOROLAC 60 MG/2 ML VIAL (J1885) As Ordered ONE (08:16)
[2019-11-19] MEDS ORDERED: dexameTHASONE 4 MG/ML 1ML VIAL (J1100) As Ordered ONE (08:16)
[2019-11-19] MEDS ORDERED: fentaNYL 100 MCG/2 ML INJECTION (J3010) As Ordered ONE ×3 (08:16→11:19)
[2019-11-19] MEDS ORDERED: MIDAZOLAM INJ 2 MG/2 ML VIAL (J2250) As Ordered ONE (08:16)
[2019-11-19] MEDS ORDERED: SUGAMMADEX SODIUM 500 MG/5 ML VIAL (BRIDION) As Ordered ONE (08:16)
[2019-11-19] MEDS ORDERED: ROCURONIUM BROMIDE 50 MG/5 ML VIAL As Ordered ONE (08:16)
[2019-11-19] MEDS ORDERED: LIDOCAINE 2% INJ 100 MG/5 ML SDV (FOR ANES.) As Ordered ONE (08:16)
[2019-11-19] MEDS ORDERED: propofoL 200 MG/20 ML VIAL As Ordered ONE (08:16)
[2019-11-19] MEDS ORDERED: ONDANSETRON 4MG/2ML VIAL (J2405) As Ordered ONE (08:16)
[2019-11-19] MEDS ORDERED: NORCO, ANEXSIA 5/325MG TABLET (HYDROcodone/ACETAMINOPHEN) PO PRN ×2 (10:45)
[2019-11-19] MEDS ORDERED: PERCOCET 5MG/325MG TAB As Ordered ONE (10:45)
[2019-11-19] MEDS: PERCOCET 5MG/325MG TAB PO PRN ×2 (10:45→11:15)
[2019-11-19] MEDS ORDERED: ONDANSETRON 4MG/2ML VIAL (J2405) IV PRN ×2 (10:45)
[2019-11-19] MEDS ORDERED: fentaNYL 100 MCG/2 ML INJECTION (J3010) IV PRN (10:45)
[2019-11-19] MEDS ORDERED: MORPHINE 2 MG/ML 1ML VIAL (J2270) IV PRN (10:45)
[2019-11-19] MEDS ORDERED: LR 1,000 ML IV SCH (10:45)
[2019-11-19] MEDS ORDERED: METOCLOPRAMIDE INJ 10MG/2ML VIAL (J2765) IV PRN (10:45)
[2019-11-19 12:20] VITALS: BP 125/82
--- NOTE | 2019-11-19 14:54 | ROOPDOC ---
[facility] Report Of Operation Report of Operation DATE OF PROCEDURE: 11/19/19 PREPROCEDURE DIAGNOSES: Cholelithiasis, biliary colic symptoms. POSTPROCEDURE DIAGNOSES: Cholelithiasis, mild chronic cholecystitis. PROCEDURE: Laparoscopic cholecystectomy. SURGEON: Ed Antoine MD HISTORIOGRAPHY PROFESSOR: ANESTHESIA: Gen. anesthesia. ESTIMATED BLOOD LOSS: Approximately 20 mL. COMPLICATIONS: None. SPECIMEN: Gallbladder PROCEDURE NOTE: Moderately distended relatively thin-walled gallbladder with multiple stones at the gallbladder neck and early portion of the cystic duct. DESCRIPTION OF PROCEDURE: Patient was given a dose Unasyn 3 g IV preoperatively for prophylaxis. She was brought to the operating room, laid supine on the table, compression boots placed for DVT prophylaxis. General endotracheal anesthesia started. Her abdomen then prepped and draped in usual sterile fashion. Surgical timeout was performed prior to starting surgery. Entry into the abdomen done through an incision above the umbilicus. A Veress needle was inserted with a controlled fashion. CO2 insufflation started to pressure 15 mmHg. Using the same incision a 5 mm Visiport was placed under direct vision laparoscope. The area underneath the insertion site was inspected and no injury found. She was then placed in steep reverse Trendelenburg. Her right side was tilted up to further expose the gallbladder. Under direct vision a 11 mm epigastric port and Two 5 mm working ports placed along the right subcostal line. Operative findings: Her liver is mildly enlarged but overall has a smooth contour no nodularities or lesions found. Part of the right lobe lateral to the gallbladder is only partially fused to the rest of the gallbladder and is partially covering the gallbladder. Her gallbladder is moderately distended, relatively thin walled. No acute inflammation found. Free-floating stones were felt at the neck of the gallbladder. The fundus of the gallbladder was grasped and the gallbladder was elevated superiorly exposing the neck of the gallbladder. I used the gallbladder to partially retract this [id number] segment of the liver that was on our way The peritoneum overlying the neck of the gallbladder was opened up and dissected free both anteriorly and posteriorly to help with retraction of the gallbladder. The hepatocystic triangle was approached and dissected using a [place] and instrument. Our initial dissection returns clerk to be still within the neck the gallbladder and slightly high here so we proceeded in dissecting more distally until we were able to define and identify the infundibulum and circumferentially, around it. The cystic duct was identified coming off from the neck of the gallbladder this was circumferentially dissected. The cystic artery was identified in its usual position medially behind a small lymph node of [place]. This was similarly circumferentially dissected off surrounding adipose tissue. The lower cystic plate was then completely dissected off the posterior wall of the neck of the gallbladder. We continued posterior dissection proximally at the next gallbladder until a critical view of safety was achieved whereby only the previously identified duct and artery coursing through the neck the gallbladder. Photodocumentation was used. At this point the cystic artery was clipped 4 times and divided. After again checking her anatomy and verifying that the previously identified cystic duct, this was also clipped 4 times and divided. The rest of the gallbladder was then dissected free of the gallbladder bed using Bovie cautery. There was minimal bleeding at the lateral gallbladder attachments to the liver capsule this was easily controlled with Bovie cautery. The gallbladder was then placed in an Endo Catch bag and retrieved outside through the epigastric port site. After re- insufflation and inspected the clips and noted this to be in place. No further bleeding noted. No bile leakage noted. The abdomen was deflated all ports were removed. The epigastric fascial defect repaired with 0 Vicryl in a mattress fashion. Rest of the skin incisions closed with 4-0 Monocryl in subcuticular fashion. Steri-Strips and gauze dressings were placed, the wound. Patient was informed they awakened, extubated and brought to recovery room stable ED ANTOINE MD Nov 19, 2019 14:54
[2019-11-19] MEDS ORDERED: KETOROLAC 30 MG/ML VIAL (J1885) IV PRN (16:00)
== END 2019-11-19 12:25 | disposition home or self-care (01) ==
LOC: M SDC 06:56
PROVIDERS: ATTEND Surgery
DX: K80.10 Calculus of gallbladder with chronic cholecystitis without obstruction (principal); K21.9 Gastro-esophageal reflux disease without esophagitis; J45.909 Unspecified asthma, uncomplicated; Z91.040 Latex allergy status; Z79.899 Other long term (current) drug therapy
CPT/HCPCS: 47562; 88304; J0131; J1100; J2250; J2405; J3010

== ENCOUNTER → 2020-06-19 | Outpatient (REF) | payer OTHER, MEDICAID ==
[~2020-06-19] MED LIST changes: -AMPICILLIN SOD/SULBACTAM SOD 3 GM in D5W MINI-BAG PLUS 100 ML IV ONE; -LR 1,000 ML IV ONE
== END ==
LOC: M SFHCADAM 09:37
PROVIDERS: ATTEND Family Medicine
DX: N39.0 Urinary tract infection, site not specified (principal)

== ENCOUNTER 2020-06-20 11:50 | Emergency (ER) | payer OTHER, MEDICAID ==
[2020-06-20] MEDS ORDERED: ACETAMINOPHEN 500 MG TAB As Ordered ONE (13:37)
[2020-06-20] MEDS ORDERED: ONDANSETRON 4MG/2ML VIAL As Ordered ONE (13:37)
[2020-06-20] MEDS ORDERED: KETOROLAC 30 MG/ML 1ML VIAL As Ordered ONE (17:02)
[2020-06-24 20:01] LABS: ALBUMIN 3.9 GM/DL (3.2-5.2); ALT/SGPT 37 U/L (12-78); BILIRUBIN,DIRECT < 0.1 MG/DL (0.0-0.2); BILIRUBIN,TOTAL 0.3 MG/DL (0.2-1.0); BLOOD UREA NITROGEN 10 MG/DL (7-18); CALCIUM LEVEL 9.5 MG/DL (8.5-10.1); CARBON DIOXIDE LEVEL 28 MEQ/L (21-32); CHLORIDE LEVEL 106 MEQ/L (98-107); CK-MB VALUE MASS < 1.0 NG/ML (<3.6); CPK CREATINE PHOSPHOKINASE 39 U/L (26-192); CREATININE FOR GFR 0.89 MG/DL (0.55-1.30); GLOMERULAR FILTRATION RATE > 60.0 (>60); GLUCOSE, FASTING 81 MG/DL (70-100); LIPASE 67 U/L (73-393); MB/CK RELATIVE INDEX 2.56 (< OR =4); POTASSIUM SERUM 4.2 MEQ/L (3.5-5.1); SODIUM LEVEL 139 MEQ/L (136-145); TOTAL PROTEIN 7.6 GM/DL (6.4-8.2); TROPONIN I < 0.02 NG/ML (< 0.10)
[2020-06-24 20:14] LABS: HCG, SERUM QUALITATIVE NEGATIVE (NEGATIVE)
--- NOTE | 2020-07-13 11:28 | ECGEPIP ---
[place] - ED Test Date: 2020-06-20 Pat Name: KAELYN JIMÉNEZ Department: Room: - Gender: Female Cut Off Operator Scorer: robert : 1995 Requested By: EMERGENCY ROOM Order Number: [id number] Reading MD: Saida Medina Measurements Intervals [place] Rate: 68 P: 22 NC: 149 QRS: 44 QRSD: 101 T: 11 QT: 387 QTc: 414 Interpretive Statements SINUS RHYTHM NORMAL ECG SEE SCANNED DOWNTIME REPORT
[2020-07-31 08:24] LABS: BASO % 0.2 % (0.0-1.0); EOS % 0.1 % (0.0-3.0); HEMATOCRIT 41.2 % (36.0-47.0); HEMOGLOBIN 12.8 g/dl (12.0-15.5); LYMPH # 1.7 10^3/uL (1.5-5.0); LYMPH % 14.3 % (24.0-44.0); MEAN CORPUSCULAR HEMOGLOBIN 26.3 pg (27.0-33.0); MEAN CORPUSCULAR HGB CONC 31.1 g/dl (32.0-36.5); MEAN CORPUSCULAR VOLUME 84.8 fl (80.0-96.0); MONO # 0.7 10^3/uL (0.0-0.8); MONO % 5.6 % (0.0-5.0); NEUTROPHILS # 9.6 10^3/uL (1.5-8.5); NEUTROPHILS % 79.6 % (36.0-66.0); PLATELET COUNT, AUTOMATED 318 10^3/uL (150-450); RED BLOOD COUNT 4.86 10^6/uL (4.00-5.40)
[2020-07-31 09:29] LABS: APPEARANCE, URINE HAZY (CLEAR); BACTERIA, URINE AUTO 2+ (NEGATIVE); BILIRUBIN, URINE AUTO NEGATIVE (NEGATIVE); BLOOD, URINE BLOOD NEGATIVE (NEGATIVE); COLOR, URINE YELLOW (YELLOW); GLUCOSE, URINE (UA) AUTO NEGATIVE (NEGATIVE); KETONE, URINE AUTO NEGATIVE (NEGATIVE); LEUKOCYTE ESTERASE, URINE AUTO 2+ (NEGATIVE); MUCUS, URINE SMALL (NEGATIVE); NITRITE, URINE AUTO NEGATIVE (NEGATIVE); PROTEIN, URINE AUTO NEGATIVE (NEGATIVE); RBC, URINE AUTO 2 /HPF (0-3); SPECIFIC GRAVITY URINE AUTO 1.018 (1.002-1.035); SQUAMOUS EPITHELIAL CELL UR AU 5 /HPF (0-6); UROBILINOGEN, URINE AUTO 0.2 mg/dL (0.0-2.0); WBC, URINE AUTO 16 /HPF (0-3)
== END 2020-06-20 18:28 | disposition home or self-care (01) ==
LOC: M ED 11:50
DX: N12 Tubulo-interstitial nephritis, not specified as acute or chronic (principal); R51 Headache; R11.10 Vomiting, unspecified; Z87.440 Personal history of urinary (tract) infections; J45.909 Unspecified asthma, uncomplicated; K21.9 Gastro-esophageal reflux disease without esophagitis; Z87.42 Personal history of other diseases of the female genital tract; Z86.19 Personal history of other infectious and parasitic diseases; Z91.040 Latex allergy status; Z79.2 Long term (current) use of antibiotics; Z79.51 Long term (current) use of inhaled steroids
CPT/HCPCS: 71046; 80048; 80076; 81001; 82550; 82553; 83690; 84484; 84703; 85025; 87040; 87486; 87581; 87633; 87798; 93005; 96361; 96374; 96375; 99284; J1885; J2405